=== PATIENT | female | born 1945 | race Caucasian/White ===

== ENCOUNTER 2024-08-28 09:52 | Outpatient (REF) | payer MEDICARE, OTHER, SELFPAY ==
--- NOTE | ~2024-08-28 | FL_ITS ---
EXAMINATION: XR FLUOROSCOPY UPPER GI WITH AIR CLINICAL INFORMATION: Odynophagia. Nausea. COMPARISON: None TECHNIQUE: Fluoroscopic air contrast upper GI examination was performed utilizing standard techniques with thin and thick barium and effervescent granules. Numerous spot images were obtained. FINDINGS: Lateral cine images of the oropharynx and hypopharynx demonstrate normal swallow mechanism with normal epiglottic inversion and soft palate elevation. There is trace laryngeal penetration with thick barium. No tracheal penetration, glottic or subglottic aspiration identified. No nasopharyngeal reflux present. Hypopharyngeal structures appear normal without evidence of mass or diverticulum. There is mild cricopharyngeal achalasia. Dual and single contrast images of the esophagus demonstrate a patulous esophagus with a normal contour. There is a granular appearance of the esophageal mucosa, suggestive of esophagitis. No strictures or ulcerations are present. Esophageal peristalsis is severely disorganized. A small type I hiatal hernia is present. There is an irregular appearance of the mucosa in the hiatal hernia with probable filling defects that extend into the fundus of the stomach. This results in intraluminal narrowing and delay in transit of the contrast into the stomach. No significant gastroesophageal reflux was seen during the course of the examination and on reflux views. Dual contrast and single contrast images of the stomach demonstrated a normal contour. There is thickening of the gastric mucosal folds throughout the stomach, suggestive of gastritis. Again noted is the irregular appearance of the mucosa in the hiatal hernia that extends into the fundus of the stomach. Contrast freely passed into the gastric antrum and duodenal bulb without delay. Single and air-contrast images of the duodenal bulb demonstrate no abnormality. The duodenal sweep has a normal appearance, course, and mucosal fold appearance. The imaged proximal jejunum has a normal fold pattern and caliber. FLUOROSCOPY TIME: 5 minutes 13 seconds Number of Spot Images: 10 Number of Cine: 13 DOSE AREA PRODUCT: 2436 uGy-m2 (microgray-meter squared) FL/FL upper GI w air IMPRESSION: 1. Trace laryngeal penetration with thick barium. 2. Mild cricopharyngeal achalasia. 3. Patulous esophagus with severely disorganized peristalsis consistent with esophageal dysmotility. 4. Granular appearance of the esophageal mucosa, suggestive of esophagitis. 5. Small type I hiatal hernia. 6. Irregular appearance of the mucosa in the hiatal hernia with probable filling defects that extend into the fundus the stomach. This results in intraluminal narrowing and delay in transit of contrast into the stomach. Findings suggest an INFILTRATING MASS, with major differential of esophageal/gastric varices. Favor mass given the appearance. Recommend correlation with EGD. 7. Thickening of the gastric mucosal folds, suggestive of gastritis. This procedure was performed by Travis Olivarez PA-C, and supervised by Dr. Zaldivar Electronically signed by: Brody Zaldivar MD 08/29/2024 04:28 PM [facility]
--- OUTSIDE RECORDS SUMMARY | 2024-08-28 09:59 | XMS_ITS | Patient Health Record ---
Author Organization Oliver Keita III, MD Address [address] [place] [address] [place] [address] Care Team Providers Care Biodiesel Engineering Manager Name Role Phone Oliver Keita Primary Care Provider Allergies Allergen (clinical drug ingredient) Drug/Non Drug Allergy documented on EMR Reaction Allergy Type Onset Date Status morphine Morphine Sulfate Unknown Drug Allergy Active Reason For Referral Reason 2 recent falls worse satish parkinson's disease Diagnosis 1 Parkinsons disease ( G20) Referral Organization Oliver Keita III, MD Referring Provider First Name Oliver Referring Provider Last Name Neela Referring Provider Speciality Internal M edicine Referred Organization [facility] Referred Provider Megan Anderson Referred Address [address], [id number], Referred Provider Specialty Nurse Chris rosa General Anita Walton CMA 09/13 09:16:32 AM EST > ref/demo/progress notes sent to Dipesh Anderson asking her to call and see patient , Anita Desouza CMA 10/10/2023 02:04:25 PM EST > Dipesh nurse called and will contact patient Referral Priority Routine Reason acute urinary incont ience Diagnosis 1 Urinary incontinence , unspecified type (R32) Referral Organization Oliver Keita III, MD Referring Provider First Name Oliver Referring Provider Last Name Neela Referring Provider Speciality Internal M edicine Referred Provider Linsey Boggs Referred Provider Specialty Urology General Notes StGAnita aguila [place] 06/13/2024 10:32:26 AM > ref/demo/progress notes faxed to Rosa Maria LAROSE Suzanne CMA 07/09/2024 03:23:00 PM > pt was seen today and has follow up appt on 08/27/2024 Referral Priority Routine Referral Appointment Date 07/09/2024 Medications Medication SIG (Take, Route, Frequency, Duration) Notes Start Date End Date Status Docusate Sodium 100 MG 1 capsule as need ed Orally Once a day prn constipation 10/07/2017 Active PreserVision AREDS - Orally Active ARIPiprazole 2 MG 1 tablet Orally Once a day Active Olmesartan Medoxomil 5 MG 1 tablet Orally Once a day Active Atorvastatin Calcium 20 MG TAKE 1 TABLET BY MOUTH EVERY DAY Active Carbidopa-Levodopa 10-100 MG 1 tablet Orally Three times a day Active Vitamin C Active Minoxidil for Women 2 % 1 mL Externally Twice a day 10/17/2023 Active Aspirin Adult Low Strength 81 MG 1 tablet Orally Once a day A ctive buPROPion HCl ER (XL) 300 MG 1 tablet in the morning Orally Once a day Active Carvedilol 6.25 MG 1 tablet with food O rally Twice a day Active Immunizations Vaccine Route Administration Date Status Comme nts Pneumococcal Unknown 03/09/2013 Administered Influenza Unknown 03/09/2013 Administered Zostavax Unknown 05/10/2014 Administered Influenza Unknown 06/23/2015 Administered PCV13 Unknown 10/13/2015 Administered Influenza, quad IM Intramuscular 06/18/2021 Administered COVID Pfizer Bivalent Unknown 06/16/2022 Administered COVID 19 Moderna Unknown 10/23/2020 Administered FLuzone HD PF Unknown 06/12/2023 Administered PCV13 Unknown 07/04/2020 Administered PCV13 Unknown 07/26/2018 Administered Influenza High Dose Quadrivalent Unknown 06/16/2022 Administered COVID 19 Moderna Unknown 11/20/2020 Administered COVID 19 Moderna Unknown 01/06/2022 Administered Social History Tobacco Use: Social History Observation Description Date Details (start date - stop date) Former Smoker NA - NA Sex Assigned At : Social History Observation Description Sex Assigned At Female Tobacco Use/Smoking Question Answer Notes Patient is a former smoker How long has it been since you last smoked? > 10 years Additional Findings: Tobacco Non-User Ex-cigaret te smoker Alcohol Screen Question Answer Notes Did you have a drink containing alcohol in the p ast year? No Points 0 Interpretation Negative Problems Problem Type SNOMED Code ICD Code Onset Dates Problem Status W/U Status Risk Notes Problem 4884914 Former smoker (Z87.891) Active confirmed She is highly motivated not to smoke and has a plan for maintenance of abstinence. Problem 18155594 Weight loss (R63.4) Active confirmed She has gained back 3 pounds. Her weight will be observed. Problem 895976447 Malignant neoplasm of sigmoid colon (C18.7) Active confirmed There is no sign of recurrent colon cancer at this time. Surveillance will continue with periodic colonoscopy. Problem Hypothyroidism (74416426) Hypothyroidism, unspecified (E03.9) Active confirmed She is clinically euthyroid. No change in her medication was necessary. Comprehensive blood work with thyroid function test was ordered today. Problem Hyperlipidemia (84174858) Hyperlipidemia, unspecified (E78.5) Active confirmed Her lipids have been stable. A fasting lipid profile is pending. Problem Osteoarthritis (889162373) Unspecified osteoarthritis, unspecified site (M19.90) Active confirmed She has mild arthritic pain which is intermittent in the hips, knees and shoulders. Her that she is using ibuprofen. Problem Other fracture of T11-T12 vertebra, initial encounter for closed fracture (S22.358A) Active confirmed Her pain is much improved she is ambulatory without difficulty and feels well. Current pain is in the hip where she had the injection, which is now improving. Problem 38263906 Essential hypertension (I10) Active confirmed Her blood pressure has been controlled at 117/61. I have recommended aggressive weight loss and sodium restriction. Problem Osteoporosis (30639827) Osteoporosis (M81.0) Active confirmed She will begin on Os-Rashawn 500 mg twice a day and 1000 units of vitamin D. If needed, alendronate will be added. Problem 05646074 Bipolar 1 disorder with moderate milady (F31.12) Active confirmed She remains under the care of her mental health provider. No change in her medications was made. Problem 31198293 Left bundle branch block (I44.7) Active confirmed She has no cardiovascular symptoms at this time. Problem 07654898 Cardiomyopathy (I42.9) Active confirmed Her loan specialist has made no change in her regimen. She is short of breath only with sustained exertion. Problem 72741102 Spinal stenosis of lumbar region without neurogenic claudication (M48.06) Active confirmed Her back pain is stable. No change in her regimen as needed. Her pain was improved with the injection yesterday Problem 604569950 Osteoarthritis (M19.90) Active confirmed She has mild arthritis in the knees, shoulders and hands. No change in her regimen as needed today. She is able to conduct all of the activities of daily living without impairment. 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 She has had no palpitations or syncope. Her cardiac disease has been in remission. She will be followed closely. She denies dyspnea. 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 She feels diffusely weak. She is compliant with her medication. She will follow-up with me on the neurologist regularly. Problem 49914725 Hyperlipidemia, unspecified hyperlipidemia type (E78.5) Active confirmed Her lipids are currently stable. Comprehensive blood work with a fasting lipid profile has been ordered. Problem 334482171 Urinary incontinence, unspecified type (R32) Active confirmed Problem 664809937 Transient ischemic attack (G45.9) Active confirmed A Holter monitor and an echocardiogram have been ordered. She will continue on aspirin. Vital Signs Heart Rate 73 /min 08/27/2024 Temperature 98.0 degrees Fahrenheit 08/27/2024 Blood pressure diastolic 56 mm Hg 08/27/2024 Height 64 in 08/27/2024 Blood pressure systolic 115 mm Hg 08/27/2024 Weight 139 lbs 08/27/2024 BMI 23.86 kg/m2 08/27/2024 Encounters Encounter Location Date Provider Diagnosis Oliver Keita III, MD [address] [place] [address] [place] [address] 08/27/2024 Oliver Keita Esophageal pain K22. 89 and Nausea and vomiting, unspecified vomiting type R11.2 Oliver Keita III, MD [address] [place] [address] [place] [address] 10/06/2023 Oliver Keita Malignant neoplasm o f sigmoid colon C18.7 ; Former smoker Z87.891 ; Overweight E66.3 ; Spinal stenosis of lumbar region without neurogenic claudication M48.06 ; Bipolar 1 disorder with moderate milady F31.12 ; Hyperlipidemia, unspecified E78.5 ; Cardiomyopathy I42.9 ; Athscl heart disease of wiyot coronary artery w/o ang pctrs I25.10 and Parkinsons disease G20 Oliver Keita III, MD [address] [place] [address] [place] [address] 10/14/2023 Oliver Keita Weight loss R63.4 ; Athscl heart disease of wiyot coronary artery w/o ang pctrs I25.10 ; Hyperlipidemia, unspecified E78.5 ; Unspecified osteoarthritis, unspecified site M19.90 ; Osteoporosis M81.0 ; Essential hypertension I10 ; Parkinsons disease G20 ; Spinal stenosis of lumbar region without neurogenic claudication M48.06 ; Former smoker Z87.891 ; Other fracture of T11-T12 vertebra, initial encounter for closed fracture S22.088A ; Malignant neoplasm of sigmoid colon C18.7 ; Bipolar 1 disorder with moderate milady F31.12 and Cardiomyopathy I42.9 Oliver Keita III, MD [address] [place] [address] [place] [address] 12/15/2023 Oliver Keita Weight loss R63.4 ; Malignant neoplasm of sigmoid colon C18.7 ; Bipolar 1 disorder with moderate milady F31.12 ; Cardiomyopathy I42.9 ; Spinal stenosis of lumbar region without neurogenic claudication M48.06 ; Hyperlipidemia, unspecified hyperlipidemia type E78.5 ; Other fracture of T11-T12 vertebra, initial encounter for closed fracture S22.088A ; Former smoker Z87.891 ; Osteoporosis M81.0 ; Parkinsons disease G20 and Essential hypertension I10 Oliver Keita III, MD [address] [place] [address] [place] [address] 03/30/2024 Oliver Keita Weight loss R63.4 ; Hyperlipidemia, unspecified E78.5 ; Malignant neoplasm of sigmoid colon C18.7 ; Bipolar 1 disorder with moderate milady F31.12 ; Cardiomyopathy I42.9 ; Spinal stenosis of lumbar region without neurogenic claudication M48.06 ; Former smoker Z87.891 ; Osteoarthritis M19.90 ; Other fracture of T11-T12 vertebra, initial encounter for closed fracture S22.088A ; Osteoporosis M81.0 ; Parkinsons disease G20 and Essential hypertension I10 Oliver Keita III, MD [address] [place] [address] [place] [address] 06/11/2024 Oliver Keita Hypothyroidism, unspecified E03.9 ; Parkinsons disease G20 ; Hyperlipidemia, unspecified E78.5 ; Bipolar 1 disorder with moderate milady F31.12 ; Malignant neoplasm of sigmoid colon C18.7 ; Cardiomyopathy I42.9 ; Spinal stenosis of lumbar region without neurogenic claudication M48.06 ; Former smoker Z87.891 ; Other fracture of T11-T12 vertebra, initial encounter for closed fracture S22.088A and Transient ischemic attack G45.9 Oliver Keita III, MD [address] [place] [address] [place] [address] 10/11/2023 Oliver Keita III, MD [address] [place] [address] [place] [address] 10/17/2023 Oliver Keita III, MD [address] [place] [address] [place] [address] 10/17/2023 Oliver Keita III, MD [address] [place] [address] [place] [address] 10/19/2023 Oliver Keita III, MD [address] [place] [address] [place] [address] 04/20/2024 Oliver Keita III, MD [address] [place] [address] [place] [address] 05/22/2024 Oliver Keita Hyperlipidemia, unspecified E78.5 ; Weight loss R63.4 and Hypothyroidism, unspecified E03.9 Oliver Keita III, MD [address] [place] [address] [address] [place] [address] 06/28/2024 Oliver Keita III, MD [address] [place] [address] [address] [place] [address] 08/23/2024 Oliver Keita Assessments Encounter Date Diagnosis (ICD Code) Assessment Notes Treat ment Notes Treatment Clinical Notes 08/27/2024 Esophageal pain (ICD-10 - K22.89) 10/06/2023 Former smoker (ICD-10 - Z87.891) She is highly motivated not to smoke and has a plan for maintenance of abstinence. 10/06/2023 Malignant neoplasm of sigmoid colon (ICD-10 - C18.7) There is no sign of recurrent colon cancer at this time. Surveillance will continue with periodic colonoscopy. 10/14/2023 Weight loss (ICD-10 - R63.4) She has lost about 20 pounds over the last year. This is likely due to her Parkinson's disease but another cause will be investigated. Blood work will be done. She is known to have a history of colon cancer. 10/14/2023 Athscl heart disease of wiyot coronary artery w/o ang pctrs (ICD-10 - I25.10) She denies any recent exertional chest pain or angina. She has had no palpitations or syncope. Her cardiac disease has been in remission. She will be followed closely. She denies dyspnea. 12/15/2023 Weight loss (ICD-10 - R63.4) She has gained back 3 pounds. Her weight will be observed. 12/15/2023 Malignant neoplasm of sigmoid colon (ICD-10 - C18.7) There is no sign of recurrent colon cancer at this time. Surveillance will continue with periodic colonoscopy. 03/30/2024 Weight loss (ICD-10 - R63.4) She has gained back 3 pounds. Her weight will be observed. 03/30/2024 Hyperlipidemia, unspecified (ICD-10 - E78.5) A fasting lipid profile has been ordered prior to her next visit. No change in her regimen was necessary today. 06/11/2024 Hypothyroidism, unspecified (ICD-10 - E03.9) She is clinically euthyroid. No change in her medication was necessary. Comprehensive blood work with thyroid function test was ordered today. 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 She feels diffusely weak. She is compliant with her medication. She will follow-up with me on the neurologist regularly. 08/27/2024 Nausea and vomiting, unspecified vomiting type (ICD-10 - R11.2) 10/06/2023 Overweight (ICD-10 - E66.3) She has gained 5 pounds since her last visit and her body mass index is 26. We have reviewed her diet and nutrition. We formulated a plan to lose weight at a rate of one half of a pound per week to a diet restricted in calories combined with regular physical activity. 10/14/2023 Hyperlipidemia, unspecified (ICD-10 - E78.5) Comprehensive blood work to evaluate the weight loss with a fasting lipid profile has been ordered. 12/15/2023 Bipolar 1 disorder with moderate milady (ICD-10 - F31.12) She has begun a new medication and was referred back to mental health for her depression and possible side effects. 03/30/2024 Malignant neoplasm of sigmoid colon (ICD-10 - C18.7) There is no sign of recurrent colon cancer at this time. Surveillance will continue with periodic colonoscopy. 06/11/2024 Hyperlipidemia, unspecified (ICD-10 - E78.5) Her lipids have been stable. A fasting lipid profile is pending. 05/22/2024 Hyperlipidemia, unspecified (ICD-10 - E78.5) 10/06/2023 Spinal stenosis of lumbar region without neurogenic claudication (ICD-10 - M48.06) Her back pain is stable. No change in her regimen as needed. Her pain was improved with the injection yesterday 10/14/2023 Unspecified osteoarthritis, unspecified site (ICD-10 - M19.90) She has mild arthritic pain which is intermittent in the hips, knees and shoulders. Her that she is using ibuprofen. 12/15/2023 Cardiomyopathy (ICD-10 - I42.9) Her loan specialist has made no change in her regimen. She is short of breath only with sustained exertion. 03/30/2024 Bipolar 1 disorder with moderate milady (ICD-10 - F31.12) She has begun a new medication and was referred back to mental health for her depression and possible side effects. 06/11/2024 Bipolar 1 disorder with moderate milady (ICD-10 - F31.12) She remains under the care of her mental health provider. No change in her medications was made. 05/22/2024 Weight loss (ICD-10 - R63.4) 10/06/2023 Bipolar 1 disorder with moderate milady (ICD-10 - F31.12) She has begun a new medication and was referred back to mental health for her depression and possible side effects. 10/14/2023 Osteoporosis (ICD-10 - M81.0) She will begin on Os-Rashawn 500 mg twice a day and 1000 units of vitamin D. If needed, alendronate will be added. 12/15/2023 Spinal stenosis of lumbar region without neurogenic claudication (ICD-10 - M48.06) Her back pain is stable. No change in her regimen as needed. Her pain was improved with the injection yesterday 03/30/2024 Cardiomyopathy (ICD-10 - I42.9) Her loan specialist has made no change in her regimen. She is short of breath only with sustained exertion. 06/11/2024 Malignant neoplasm of sigmoid colon (ICD-10 - C18.7) There is no sign of recurrent colon cancer at this time. Surveillance will continue with periodic colonoscopy. 05/22/2024 Hypothyroidism, unspecified (ICD-10 - E03.9) 10/06/2023 Hyperlipidemia, unspecified (ICD-10 - E78.5) 10/14/2023 Essential hypertension (ICD-10 - I10) Her blood pressure has been controlled. I have recommended aggressive weight loss and sodium restriction. 12/15/2023 Hyperlipidemia, unspecified hyperlipidemia type (ICD-10 - E78.5) Her lipids are currently stable. Comprehensive blood work with a fasting lipid profile has been ordered. 03/30/2024 Spinal stenosis of lumbar region without neurogenic claudication (ICD-10 - M48.06) Her back pain is stable. No change in her regimen as needed. Her pain was improved with the injection yesterday 06/11/2024 Cardiomyopathy (ICD-10 - I42.9) Her loan specialist has made no change in her regimen. She is short of breath only with sustained exertion. 10/06/2023 Cardiomyopathy (ICD-10 - I42.9) Her loan specialist has made no change in her regimen. She is short of breath only with sustained exertion. 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 She feels diffusely weak. She is compliant with her medication. She will follow-up with me on the neurologist regularly. 12/15/2023 Other fracture of T11-T12 vertebra, initial encounter for closed fracture (ICD-10 - S22.088A) Her pain is much improved she is ambulatory without difficulty and feels well. Current pain is in the hip where she had the injection, which is now improving. 03/30/2024 Former smoker (ICD-10 - Z87.891) She is highly motivated not to smoke and has a plan for maintenance of abstinence. 06/11/2024 Spinal stenosis of lumbar region without neurogenic claudication (ICD-10 - M48.06) Her back pain is stable. No change in her regimen as needed. Her pain was improved with the injection yesterday 10/06/2023 Athscl heart disease of wiyot coronary artery w/o ang pctrs (ICD-10 - I25.10) No additional chest pain. Compliannt with her medication. Her cardiac examination today was unremarkable. 10/14/2023 Spinal stenosis of lumbar region without neurogenic claudication (ICD-10 - M48.06) Her back pain is stable. No change in her regimen as needed. Her pain was improved with the injection yesterday 12/15/2023 Former smoker (ICD-10 - Z87.891) She is highly motivated not to smoke and has a plan for maintenance of abstinence. 03/30/2024 Osteoarthritis (ICD-10 - M19.90) She has mild arthritis in the knees, shoulders and hands. No change in her regimen as needed today. She is able to conduct all of the activities of daily living without impairment. 06/11/2024 Former smoker (ICD-10 - Z87.891) She is highly motivated not to smoke and has a plan for maintenance of abstinence. 10/06/2023 Parkinsons disease (ICD-10 - G20) She has been placed on carbidopa/levodopa by the neurologist and says her tremor is improving. Her main complaint today is balancing. 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 10/14/2023 Former smoker (ICD-10 - Z87.891) She is highly motivated not to smoke and has a plan for maintenance of abstinence. 12/15/2023 Osteoporosis (ICD-10 - M81.0) She will begin on Os-Rashawn 500 mg twice a day and 1000 units of vitamin D. If needed, alendronate will be added. 03/30/2024 Other fracture of T11-T12 vertebra, initial encounter for closed fracture (ICD-10 - S22.088A) Her pain is much improved she is ambulatory without difficulty and feels well. Current pain is in the hip where she had the injection, which is now improving. 06/11/2024 Other fracture of T11-T12 vertebra, initial encounter for closed fracture (ICD-10 - S22.088A) Her pain is much improved she is ambulatory without difficulty and feels well. Current pain is in the hip where she had the injection, which is now improving. 10/14/2023 Other fracture of T11-T12 vertebra, initial encounter for closed fracture (ICD-10 - S22.088A) Her pain is much improved she is ambulatory without difficulty and feels well. Current pain is in the hip where she had the injection, which is now improving. 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 She feels diffusely weak. She is compliant with her medication. She will follow-up with me on the neurologist regularly. 03/30/2024 Osteoporosis (ICD-10 - M81.0) She will begin on Os-Rashawn 500 mg twice a day and 1000 units of vitamin D. If needed, alendronate will be added. 06/11/2024 Transient ischemic attack (ICD-10 - G45.9) A Holter monitor and an echocardiogram have been ordered. She will continue on aspirin. 10/14/2023 Malignant neoplasm of sigmoid colon (ICD-10 - C18.7) There is no sign of recurrent colon cancer at this time. Surveillance will continue with periodic colonoscopy. 12/15/2023 Essential hypertension (ICD-10 - I10) Her blood pressure has been controlled at 111/56. I have recommended aggressive weight loss and sodium restriction. 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 She feels diffusely weak. She is compliant with her medication. She will follow-up with me on the neurologist regularly. 10/14/2023 Bipolar 1 disorder with moderate milady (ICD-10 - F31.12) She has begun a new medication and was referred back to mental health for her depression and possible side effects. 03/30/2024 Essential hypertension (ICD-10 - I10) Her blood pressure has been controlled at 117/61. I have recommended aggressive weight loss and sodium restriction. 10/14/2023 Cardiomyopathy (ICD-10 - I42.9) Her loan specialist has made no change in her regimen. She is short of breath only with sustained exertion. Plan Of Treatment Pending Test Test Name Order Date PROFILE, FASTING (COMPREHENSIVE METABOLI C) 06/30/2020 PROFILE, FASTING (COMPREHENSIVE METABOLI C) 12/09/2022 PROFILE, FASTING (COMPREHENSIVE METABOLI C) 09/18/2019 PROFILE, FASTING (COMPREHENSIVE METABOLI C) 03/30/2024 PROFILE, FASTING (COMPREHENSIVE METABOLI C) 04/09/2021 PROFILE, FASTING (COMPREHENSIVE METABOLI C) 01/31/2018 PROFILE, FASTING (COMPREHENSIVE METABOLI C) 11/16/2021 PROFILE, FASTING (COMPREHENSIVE METABOLI C) 11/27/2020 PROFILE, FASTING (COMPREHENSIVE METABOLI C) 06/24/2022 PROFILE, FASTING (COMPREHENSIVE METABOLI C) 05/18/2019 PROFILE, FASTING (COMPREHENSIVE METABOLI C) 10/07/2017 PROFILE, FASTING (COMPREHENSIVE METABOLI C) 04/13/2023 PROFILE, FASTING (COMPREHENSIVE METABOLI C) 01/17/2020 PROFILE, FASTING (COMPREHENSIVE METABOLI C) 06/11/2024 PROFILE, FASTING (COMPREHENSIVE METABOLI C) 06/18/2021 PROFILE, FASTING (COMPREHENSIVE METABOLI C) 01/15/2019 PROFILE, FASTING (COMPREHENSIVE METABOLI C) 08/11/2018 PROFILE, FASTING (COMPREHENSIVE METABOLI C) 08/25/2020 PROFILE, FASTING (COMPREHENSIVE METABOLI C) 05/22/2024 PROFILE, FASTING (COMPREHENSIVE METABOLI C) 03/10/2022 PROFILE, RANDOM (COMPREHENSIVE METABOLIC ) 04/28/2020 PROFILE, RANDOM (COMPREHENSIVE METABOLIC ) 06/24/2020 CALCIUM 06/24/2020 LIPID PANEL 01/15/2019 LIPID PANEL 08/11/2018 LIPID PANEL 08/25/2020 LIPID PANEL 03/10/2022 LIPID PANEL 06/30/2020 LIPID PANEL 06/24/2020 LIPID PANEL 12/09/2022 LIPID PANEL 09/18/2019 LIPID PANEL 04/28/2020 LIPID PANEL 04/09/2021 LIPID PANEL 01/31/2018 LIPID PANEL 11/27/2020 LIPID PANEL 06/24/2022 LIPID PANEL 05/18/2019 LIPID PANEL 10/07/2017 LIPID PANEL 04/13/2023 LIPID PANEL 01/17/2020 CHOLESTEROL 11/16/2021 FREE T4 (FT4) 06/30/2020 TSH (THYROID STIMULATING HORMONE) 2023 TSH (THYROID STIMULATING HORMONE) 2017 TSH (THYROID STIMULATING HORMONE) 2019 TSH (THYROID STIMULATING HORMONE) 2019 TSH (THYROID STIMULATING HORMONE) 2023 CEA 10/07/2017 CBC w DIFF 06/18/2021 CBC w DIFF 04/13/2023 CBC w DIFF 01/17/2020 CBC w DIFF 06/11/2024 CBC w DIFF 10/07/2017 CBC w DIFF 01/15/2019 CBC w DIFF 08/25/2020 CBC w DIFF 03/10/2022 CBC w DIFF 12/09/2022 CBC w DIFF 08/11/2018 CBC w DIFF 09/18/2019 CBC w DIFF 06/24/2020 CBC w DIFF 04/28/2020 CBC w DIFF 04/09/2021 CBC w DIFF 01/31/2018 CBC w DIFF 06/30/2020 CBC w DIFF 11/16/2021 CBC w DIFF 11/27/2020 CBC w DIFF 06/24/2022 CBC w DIFF 05/18/2019 XR GI SERIES 08/27/2024 BONE DENSITY DEXA 04/22/2023 MAMMOGRAM DIGITAL BILATERAL SCREEN 11/27 MAMMOGRAM DIGITAL BILATERAL SCREEN 04/06 Echocardiogram 01/27/2017 VITAMIN D 25-OH TOTAL 01/15/2019 VITAMIN D 25-OH TOTAL 08/11/2018 VITAMIN D 25-OH TOTAL 06/24/2020 VITAMIN D 25-OH TOTAL 04/28/2020 CBC WITH AUTO DIFF 05/22/2024 CBC WITH AUTO DIFF 03/30/2024 Lipid Panel 06/18/2021 Lipid Panel 06/11/2024 Lipid Panel 05/22/2024 Lipid Panel 03/30/2024 Free T4 (Free Thyroxine) 06/11/2024 Free T4 (Free Thyroxine) 05/22/2024 Next Appt Details Provider Name:Oliver Keita, 09/19/2024 10:30:00 AM, [address] [place] [address] [address], [place], [address], Provider Name:Oliver Keita, 12/17/2024 10:00:00 AM, [address] [place] [address] [address], [place], [address], Insurance Providers Payer Name Payer Address Payer Phone Subscriber Number Group Number Insured Name Patient Relationship to Insured Coverage Start Date Coverage End Date MEDICARE NGS [address] [place] [phone] [id number] [place] Julienne pizano Self - patient is the insured [employer]) [address] [place] [address] [phone] [id number] [employer] Julienne pizano Self - patient is the insured Medical (General) History Medical History History ICD Code nonischemic cardiomyopathy EF 30-35% osteoarthritis hyperlipidemia 2001 colon cancer State II [id number] bipolar disorder unrinary incontinence shingles 2009 LBBB mammograms due in November chronic back pain/spinal stenosis macular degeneration Xavi Zhang [place] Essential hypertension TIA [facility] July 2023 Parkinsons diswase July 2023 dry macular degeneration legal blindness Surgical History Surgery Date(Month/Year) left knee replacement lumbar decompression 2014 cardiac catheterization, normal 06/2014 right knee replacement colonoscopy 11/2008 colonoscopy 12/2010 right ilieocolectomy 2001 Hospitalization History Reason Date(Month/Year) HIMANSHU 07/2022 TIA 07/2022
--- OUTSIDE RECORDS SUMMARY | 2024-08-28 09:59 | XMS_ITS ---
Author Organization Oliver Keita III, MD Address [address] [address] Care Team Providers Care Construction Quality Control Manager Name Role Phone Oliver Keita Primary Care Provider Allergies Allergen (clinical drug ingredient) Drug/Non Drug Allergy documented on EMR Reaction Allergy Type Onset Date Status morphine Morphine Sulfate Unknown Drug Allergy Active REASON FOR VISIT It hurts to swallow and chest hurts x 1 week, Vomiting x 1 week Medications Medication SIG (Take, Route, Frequency, Duration) Notes Start Date End Date Status Docusate Sodium 100 MG 1 capsule as need ed Orally Once a day prn constipation 10/07/2017 Active PreserVision AREDS - Orally Active ARIPiprazole 2 MG 1 tablet Orally Once a day Active Olmesartan Medoxomil 5 MG 1 tablet Orally Once a day Active Carbidopa-Levodopa 10-100 MG 1 tablet Orally [...] food O rally Twice a day Active Atorvastatin Calcium 20 MG TAKE 1 TABLET BY MOUTH EVERY DAY Active Social History Tobacco Use: Social History Observation Description Date Details (start date - stop date) Former Smoker NA - NA Sex Assigned At : Social History Observation Description Sex Assigned At Female Tobacco Use/Smoking Question Answer Notes Patient is a former smoker How long has it been since you last smoked? > 10 years Additional Findings: Tobacco Non-User Ex-cigaret te smoker Vital Signs Temperature 98.0 degrees Fahrenheit 08/27/20 24 Blood pressure systolic 115 mm Hg 08/27/20 24 Blood pressure diastolic 56 mm Hg 024 Heart Rate 73 /min 08/27/2024 Height 64 in 08/27/2024 Weight 139 lbs 08/27/2024 BMI 23.86 kg/m2 08/27/2024 Encounters Encounter Location Date Provider Diagnosis Oliver Keita III, MD [address] [place] [address] [place] [facility] [address] 08/27/2024 Oliver Keita Esophageal pain K22. 89 and Nausea and vomiting, unspecified vomiting type R11.2 Assessments Encounter Date Diagnosis (ICD Code) Assessment Notes Treat ment Notes Treatment Clinical Notes 08/27/2024 Esophageal pain (ICD-10 - K22.89) 08/27/2024 Nausea and vomiting, unspecified vomiting type (ICD-10 - R11.2) Plan Of Treatment Medication Medication Name Sig Start Date Stop Date Notes Docusate Sodium 100 MG 1 capsule as need ed Orally Once a day prn constipation 10/07/2017 PreserVision AREDS - Orally ARIPiprazole 2 MG 1 tablet Orally Once a day Olmesartan Medoxomil 5 MG 1 tablet Orally Once a day Carbidopa-Levodopa 10-100 MG 1 tablet Or ally Three times a day Vitamin C Minoxidil for Women 2 % 1 mL Externally Twice a day 2023 Aspirin Adult Low Strength 8 1 MG 1 tablet Orally Once a day buPROPion HCl ER (XL) 300 MG 1 tablet in the morning Orally Once a day Carvedilol 6.25 MG 1 tablet with food O rally Twice a day Atorvastatin Calcium 20 MG TAKE 1 TABLET BY MOUTH EVERY DAY Pending Test Test Name Order Date XR GI SERIES 08/27/2024 Next Appt Details Follow Up: after labs/UGI, Alexandrea amaya: OV review labs and UGI Provider Name:Oliver Hilliardrne, 09/19/2024 10:30:00 AM, [address] [facility] [address], [place], [address], Provider Name:Oliver Hilliardrne, 12/17/2024 10:00:00 AM, [address] [facility] [address], [place], [address], Progress Notes * MARIA DEL ROSARIORENE JulienneDOB:[birth year] (79 yo F)Acc No.[id number]:08/27/2024 Progress Notes Patient:?Julienne BURGOS Provider:?Oliver Keita MD :1945???Age:79 Y???Sex:Female D ate:08/27/2024 Address:[facility] [address], [place], [phone] Subjective: * Chief Complaints: * ???1. It hurts to swallow an d chest hurts x 1 week. 2. Vomiting x 1 week. * HPI: ???COVID-19 Screening:?Questions?Have you had any new onset fever, chills, cough, congestion, sore throat, shortness of breath, muscle aches??No * ROS:?General/Constitutional:?pain?only normal aches and pains.?Chills?denies.?Fatigue?admits.?Fever?denies.?ENT:?Decreased hearing?denies.?Respiratory:?Cough?denies.?Cardiovascular:?Chest pain with exertion?denies.?Dyspnea on exertion?denies.?Shortness of breath?denies.?Gastrointestinal:?Constipation?denies.?Decreased appetite?denies.?Diarrhea?denies.?Heartburn?denies.?Nausea?denies.?Rectal bleeding?denies.?Vomiting?denies.?Hematology:?bruising?denies.?petechiae?denies.?Swollen glands?none have been noted.?Genitourinary:?Frequent urination?denies.?Musculoskeletal:?Muscle aches?denies.?Painful joints?denies.?Sciatica?denies.?Weakness?denies.?Skin:?Itching?denies.?Rash?denies.?Skin lesion(s)?denies.?Neurologic:?Difficulty speaking?denies.?Dizziness?denies.?Headache?denies.?Low back pain?denies.?Psychiatric:?Depressed mood?denies.? * Medical History:?nonischemic cardiomyopathy EF 30-35%, Osteoarthritis, Hyperlipidemia, 2001 colon cancer State II [id number], Bipolar disorder, Unrinary incontinence, Shingles 2009, LBBB, mammograms due in November, Chronic back pain/spinal stenosis, macular degeneration [place]avi [place], Essential hypertension, TIA [facility] July 2023, Parkinsons diswase July 2023, Dry macular degeneration, Legal blindness. * Surgical History:?right ilie ocolectomy 2001, colonoscopy 12/2010, colonoscopy 11/2008, right knee replacement , cardiac catheterization, normal 06/2014, lumbar decompression 2014, left knee replacement . * Hospitalization/Major Diagno stic Procedure:?TIA 07/2022, HIMANSHU 07/2022. * Family History:?Father: dece ased 76 yrs, emphysema.?Mother: 97 yrs, old age, no cancer history.?2 brother(s) , 1 sister(s) - healthy. 1 son(s) , 1 daughter(s) - healthy. .? She has no family history of mental illness or colon cancer. * Social History:?Tobacco Use:?Tobacco Use/Smoking?Patient is a?former smoker ?How long has it been since you last smoked??> 10 years ?Additional Findings: Tobacco Non-User?Ex-cigarette smoker ???She has been to [place] for many years and is not working. She was born in [facility], [facility]. * Medications:?Taking Minoxidi l for Women 2 % Solution 1 mL Externally Twice a day , Taking Vitamin C , Taking buPROPion HCl ER (XL) 300 MG Tablet Extended Release 24 Hour 1 tablet in the morning Orally Once a day , Taking Aspirin Adult Low Strength 81 MG Tablet Chewable 1 tablet Orally Once a day , Taking Carvedilol 6.25 MG Tablet 1 tablet with food Orally Twice a day , Taking PreserVision AREDS - Tablet Orally , Taking Docusate Sodium 100 MG Capsule 1 capsule as needed Orally Once a day prn constipation , Taking Olmesartan Medoxomil 5 MG Tablet 1 tablet Orally Once a day , Taking ARIPiprazole 2 MG Tablet 1 tablet Orally Once a day , Taking Carbidopa-Levodopa 10-100 MG Tablet 1 tablet Orally Three times a day , Taking Atorvastatin Calcium 20 MG Tablet TAKE 1 TABLET BY MOUTH EVERY DAY , Medication List reviewed and reconciled with the patient * Allergies:?Morphine Sulfate. Objective: * Vitals:?Ht: 64, Wt:139, BMI: 23.86, BP:115/56, HR:73, Temp:98.0, Wt-k.05. * Examination: ???General Examination: ?GENERAL APPEARANCE:?pleasant, well nourished, well developed, in no acute distress, calm and relaxed.?HEAD:?atraumatic, normocephalic.?EYES:?eomi, perrla, anicteric, conjugate.?EARS:?normal.?NOSE:?septum intact.?ORAL CAVITY:?normal, unremarkable.?NECK/THYROID:?no jugular venous distention, no carotid bruit, thyroid normal.?LYMPH NODES:?no enlarged lymph nodes,spleen normal.?SKIN:?no suspicious lesions, anicteric.?HEART:?no clicks, gallops, murmurs, or rubs, regular rhythm, S1, S2 normal, no s3, or vascular bruits.?LUNGS:?clear to auscultation .?BREASTS:??no masses palpable bilaterally.?ABDOMEN:?bowel sounds normal, no ascites, no organomegaly, no mass.?RECTAL EXAM:?not examined.?MUSCULOSKELETAL:?extremities unremarkable, no clubbing, cyanosis or edema.?PERIPHERAL PULSES:?normal.?NEUROLOGIC:?alert and oriented, cranial nerves 2-12 grossly intact, deep tendon reflexes 2+ symmetrical, motor strength normal upper and lower extremities, sensory exam intact.?PSYCH:?alert, oriented.? Assessment: * Assessment: 1.?Esophageal pain - K22.89? ??2.?Nausea and vomiting, unspecified vomiting type - R11.2??? Plan: * Treatment: 2.?Nausea and vomiting, unsp ecified vomiting type?Imaging: XR GI SERIES 3.?Others? Continue Atorvastatin Calcium Tablet, 20 MG, TAKE 1 TABLET BY MOUTH EVERY DAY;?Continue Minoxidil for Women Solution, 2 %, 1 mL, Externally, Twice a day;?Continue Vitamin C;?Continue buPROPion HCl ER (XL) Tablet Extended Release 24 Hour, 300 MG, 1 tablet in the morning, Orally, Once a day;?Continue Aspirin Adult Low Strength Tablet Chewable, 81 MG, 1 tablet, Orally, Once a day;?Continue Carvedilol Tablet, 6.25 MG, 1 tablet with food, Orally, Twice a day;?Continue PreserVision AREDS Tablet, -, Orally;?Continue Docusate Sodium Capsule, 100 MG, 1 capsule as needed, Orally, Once a day prn constipation;?Continue Olmesartan Medoxomil Tablet, 5 MG, 1 tablet, Orally, Once a day;?Continue ARIPiprazole Tablet, 2 MG, 1 tablet, Orally, Once a day;?Continue Carbidopa-Levodopa Tablet, 10-100 MG, 1 tablet, Orally, Three times a day.?? * Follow Up:?after labs/UGI (Alexandrea amaya: OV review labs and UGI) * Images: * The named appointment provid er may or may not be the originator of this progress note, and it is not deemed complete until electronically signed by the appointment provider. Sign off status: Pending * Provider:?Oliver Ketia MD Date:?08/12 Generated for Lesliei becky/Cecilia/Mary on:?08/28/2024 09:58 AM EST History and Physical Notes * HPI (History of Present Illness) Category Sub-Category Detail Notes COVID-19 Screening Questions Have you had any new onset fever, chills, cough, congestion, sore throat, shortness of breath, muscle aches?: No Examination Category Sub-Category Detail Notes General Examination GENERAL APPEARANCE: pleasant , well nourished, well developed, in no acute distress, calm and relaxed HEAD: atraumatic, normocep halic EYES: eomi, perrla, anicte eda, conjugate EARS: normal NOSE: septum intact NECK/THYROID: no jugular venous di stention, no carotid bruit, thyroid normal HEART: no clicks, gallops, murmurs, or rubs, regular rhythm, S1, S2 normal, no s3, or vascular bruits LUNGS: clear to auscultatio n ABDOMEN: bowel sounds normal, no ascites, no organomegaly, no mass NEUROLOGIC: alert and oriented, cranial nerves 2-12 grossly intact, deep tendon reflexes 2+ symmetrical, motor strength normal upper and lower extremities, sensory exam intact SKIN: no suspicious lesion s, anicteric PERIPHERAL PULSES: normal BREASTS: no masses palpable b ilaterally MUSCULOSKELETAL: extremities unremark able, no clubbing, cyanosis or edema LYMPH NODES: no enlarged lymph no yunior,spleen normal RECTAL EXAM: not examined PSYCH: alert, oriented ORAL CAVITY: normal, unremarkable
--- OUTSIDE RECORDS SUMMARY | 2024-08-28 09:59 | XMS_ITS ---
[facility] Name [facility] Organization Unknown History of Medication Use Medication Directions Dispensed Refills Start Date End Date Stat traZODone (DESYREL) 50 MG tablet Take 0.5-1 tablets by mouth nightly. 06/04/2022 active Multiple Vitamins-Minerals (PreserVision AREDS) Tab 06/04/2022 active carbidopa-levodopa (SINEMET) 25-100 MG per tablet Take 1 tablet by mouth. 01/19/2023 active carvedilol (COREG) 6.25 MG tablet Take 6.25 mg by mouth 2 (two) times a day. 06/04/2022 active bisacodyl 5 MG EC tablet 06/04/2022 active buPROPion (WELLBUTRIN XL) 300 MG 24 hr tablet 1 tablet in the morning 06/04/2022 active doxycycline (VIBRA-TABS) 100 MG tablet doxycycline hyclate 100 mg tablet TAKE 1 TABLET BY MOUTH TWICE A DAY DIRECTED FOR 7 DAYS 08/20/2022 active brimonidine (ALPHAGAN) 0.2 % ophthalmic solution 06/04/2022 activ e atorvastatin (LIPITOR) 20 MG tablet 1 tablet 06/04/2022 active doxycycline (VIBRAMYCIN) 100 MG capsule doxycycline hyclate 100 mg capsule Take 2 capsules by oral route. 06/04/2022 active polyethylene glycol (miraLAx) 17 GM/SCOOP powder Take 17 g by mouth. 12/01/2022 active ARIPiprazole (ABILIFY) 2 MG tablet 06/04/2022 act sara lamoTRIgine (LaMICtal) 50 MG Tablet Dispersible 1 tablet 06/04/2022 active [facility] Stool Softener 100 MG capsule Take 100 mg by mouth daily as needed. 06/04/2022 active HYDROcodone-acetamino phen (NORCO) 5-325 mg per tablet Take 1 tablet by mouth 4 times daily (every 6 hours) as needed. 08/20/2022 active Multiple Vitamins-Minerals (PreserVision AREDS) Tab 04/23/2023 active atorvastatin (LIPITOR) 20 MG tablet 1 tablet 06/04/2022 active melatonin 10 MG Tab tablet 06/04/2022 active olmesartan (BENICAR) 5 MG tablet 1 tablet 06/04/2022 active LORazepam (ATIVAN) 0.5 MG tablet TAKE 1 TABLET BY MOUTH EVERY DAY NEEDED FOR ANXIETY 08/20/2022 active lisinopril (PRINIVIL,ZeSTRIL) 2.5 MG tablet Take 1 tablet by mouth daily. 06/04/2022 active DULoxetine (CYMBALTA) 60 MG capsule 06/04/2022 active Triamcinolone Acetonide 0.025 % Lotion APPLY TO SCALP TWICE A DAY NEEDED 06/04/2022 active carbidopa-levodopa (SINEMET) 10-100 MG per tablet 1 tablet 12/01/2022 active hydrALAZINE (APRESOLINE) 50 MG tablet 1 tablet 06/04/2022 active OMEprazole (PriLOSEC) 20 MG capsule omeprazole 20 mg capsule,delayed release 06/04/2022 active carbidopa-levodopa (SINEMET) 25-100 MG per tablet 08/20/2022 active amoxicillin (AMOXIL) 500 MG capsule TAKE 4 CAPSULES BY MOUTH 1 HOUR PRIOR TO APPT 08/20/2022 active meclizine (ANTIVERT) 25 MG tablet 06/04/2022 active hydrALAZINE (APRESOLINE) 25 MG tablet 06/04/2022 active losartan (COZAAR) 25 MG tablet losartan 25 mg tablet 06/04/2022 active iicukeoz-gdpxmwvby-is xamethasone (MAXITROL) 0.1 % Ointment neomycin 3.5 mg/g-polymyxin B 10,000 unit/g-dexameth 0.1 % eye oint APPLY DIRECTED TO BOTH EYES DAILY AT BEDTIME 08/20/2022 active olmesartan (BENICAR) 5 MG tablet Take 10 mg by mouth daily. 06/04/2022 aborted DULoxetine (CYMBALTA) 30 MG capsule 06/04/2022 active lithium carbonate (LITHOBID) 300 MG 12 hr CR tablet 06/04/2022 active buPROPion (WELLBUTRIN XL) 150 MG 24 hr tablet TAKE 1 TABLET BY MOUTH EVERY MORNING TAKE WITH THE 300 MG TABLET. 08/20/2022 active [facility] Melatonin 10 MG capsule TAKE 1 CAPSULE BY MOUTH EVERYDAY AT BEDTIME 06/04/2022 active Problems Problem Status Onset Date Problem Type Date of Resoluti on Source Opioid use, unspecified, uncomplicated active 2023-04-21 [facility] Other chronic pain active 2021-07-02 [facility] Chronic low back pain active 2020-06-05 [facility] Spinal stenosis of lumbar region active 2021-02-16 Problem[facility] Thoracic facet joint syndrome active 2020-06-05 [facility] Lumbar radiculopathy active 2021-02-16 [facility] Sacroiliitis active 2020-05-29 ProblemAct [facility] Lumbar facet joint syndrome active 2020-06-05 ProblemAct [facility]
--- OUTSIDE RECORDS SUMMARY | 2024-08-28 09:59 | XMS_ITS ---
Author Organization Oliver Keita III, MD Address [address] [place] [address] Care Team Providers Care Brush Maker Machine Name Role Phone Oliver Keita Primary Care Provider REASON FOR VISIT Message Social History Sex Assigned At : Social History Observation Description Sex Assigned At Female Encounters Encounter Location Date Provider Diagnosis Oliver Keita III, MD [address] [place] [address] [place] [address] 08/23/2024 Oliver Keita Plan Of Treatment Next Appt Details Provider Name:Oliver Keita, 09/19/2024 10:30:00 AM, [address] [place] [address] [place], [address], Provider Name:Oliver Keita, 12/17/2024 10:00:00 AM, [address] [place] [address] [address], [place], [address], Progress Notes * Julienne BURGOSDOB:[birth year] (79 yo F)Acc No.[id number]:08/23/2024 Patient:?Julienne BURGOS :1945???Age:79 Y???Sex:Female Address:[facility] [address], [place] [address] * true * Date:? Generated for Kerri pena/Cecilia/eTransmitting on:?08/28/2024 09:58 AM EST
--- OUTSIDE RECORDS SUMMARY | 2024-08-28 09:59 | XMS_ITS ---
Author Organization Oliver Keita III, MD Address [address] [place] [address] Care Team Providers Care Garden Worker Name Role Phone Oliver Keita Primary Care Provider REASON FOR VISIT Requesting Appointment / Follow Up Social History Sex Assigned At : Social History Observation Description Sex Assigned At Female Encounters Encounter Location Date Provider Diagnosis Oliver Keita III, MD [address] [place] [address] [place] [address] 06/28/2024 Oliver Keita Plan Of Treatment Next Appt Details Provider Name:Oliver Keita, 09/19/2024 10:30:00 AM, [address] [place] [address] [place], [address], Provider Name:Oliver Keita, 12/17/2024 10:00:00 AM, [address] [place] [address] [address], [place], [address], Progress Notes * Julienne BURGOSB:[birth year] (79 yo F)Acc No.[id number]:06/28/2024 Patient:?Julienne BURGOS :1945???Age:79 Y???Sex:Female Address:[facility] [address], [place] [address] * true * Date:? Generated for Lesliei becky/Cecilia/eTransmitting on:?08/28/2024 09:58 AM EST
--- OUTSIDE RECORDS SUMMARY | 2024-08-28 09:59 | XMS_ITS | Continuity of Care Document ---
Author Organization [facility] Address [address] [facility], [address] d [address], [address] [place] [phone] Support Name Relationship Address Phone PODGURSRENE, MEGHANA Personal Relationship Unknown Un available PODGURSKI, RUSTAM spouse Unknown Unavailable PODGURSKI, MEGHANA Personal Relationship Unknown Un available PODGURSKI, MEGHANA Personal Relationship Unknown Un available PODGURSKI, MEGHANA Personal Relationship Unknown Un available PODGURSKI, RUSTAM Personal Relationship Unknown Un available PODGURSKI, RUSTAM Personal Relationship Unknown Un available PODGURSKI, RUSTAM Personal Relationship Unknown Un available PODGURSKI, RUSTAM Personal Relationship Unknown Un available PODGURSKI, MEGHANA Personal Relationship Unknown Un available PODGURSKI, MEGHANA Personal Relationship Unknown Un available PODGURSKI, RUSTAM Personal Relationship Unknown Un available PODGURSKI, MEGHANA Personal Relationship Unknown Un available PODGURSKI, MEGHANA Personal Relationship Unknown Un available PODGURSKI, RUSTAM Personal Relationship Unknown Un available PODGURSKI, RUSTAM Personal Relationship Unknown Un available PODGURSKI, RUSTAM Personal Relationship Unknown Un available PODGURSKI, MEGHANA Personal Relationship Unknown Un available PODGURSKI, RUSTAM Personal Relationship Unknown Un available PODGURSK, RUSTAM Personal Relationship Unknown Aundrea vailable PODGURSKI, RUSTAM Personal Relationship Unknown Un available PODGURSKI, MEGHANA Personal Relationship Unknown Un available Care Team Providers 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 Lumber 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 Supervisor Name Role Phone Neela RIBERA, Oliver Cabrera Primary Care Physician Encounter [facility] Date(s): 08/13/24 - 08/20/24 [facility] [address] [facility] [address] [place] [address]- Attending Physician: Oliver Stevens MD Encounter Type: Office Visit Allergies, Adverse Reactions, Alerts Substance Criticality Severity Reaction Reaction Severity Status morphine Active Immunizations Given and Recorded Vaccine Date Status Refusal Reason tetanus/diphtheria/pertussis, acel(Tdap) 03/09/24 Given Medications acetaminophen 500 mg oral tablet 1 tablet = 500 mg, By Mouth, Every 4 hours, PRN as needed for pain, # 50 tablet, 0 Refills, Maintenance, 10/12/18 12:41:46 PM EST, Tablet Start Date: 10/12/18 Status: Ordered Quantity: 50.0 Unit: tablet Repeat number: 1 aspirin 81 mg oral delayed release tablet 81 mg, By Mouth, Daily, # 30 tablet, Refills 0, Tot. Refills 0, Maintenance, 09/22/17 3:23:30 PM EST, Route to Pharmacy Electronically, [facility] 3 Start Date: 09/22/17 Stop Date: 10/22/17 Status: Ordered Quantity: 30.0 Unit: tablet Repeat number: 1 atorvastatin 20 mg oral tablet *DUE 10/05*TAKE 1 TABLET BY ORAL ROUTE EVERY DAY Start Date: 09/21/17 Status: Ordered Repeat number: 1 Biotene Mouthwash oral solution 15 mL, By Mouth, 3 times a day, PRN as needed, for dry mouth swish and spit; do not swallow, # 300 mL, 3 Refills, Maintenance, 12/16/23 11:31:00 AM EDT, Solution, [facility]/pharmacy #[id number], Partial fill upon patient request if the prescription is for a schedule II opioid drug., 15 mL By Mouth 3 times a day,x30 days,PRN:as needed,Instr:for dry mouth swish and spit; do not swallow, 162, cm, 12/16/23 10:32:00 EDT, Height, 68, kg, 10/21/22 9:20:00 EST, Dry Weight Start Date: 12/16/23 Stop Date: 04/14/24 Status: Ordered Quantity: 300.0 Unit: mL Repeat number: 4 buPROPion 300 mg/24 hours (XL) oral tablet, extended release TAKE 1 TABLET BY MOUTH EVERY DAY IN THE MORNING Start Date: 08/06/22 Status: Ordered Repeat number: 1 carbidopa-levodopa 25 mg-100 mg oral tablet 2 tablet, By Mouth, 4 times a day, Take at 9a,12n,3p, and 6p (30 min before meals), # 720 tablet, 3Refills, Maintenance, 10/17/25 3:36:00 PM EST, Tablet, [facility]/pharmacy #[id number], Partial fill upon patient request if the prescription is for a schedule II opioid drug., 2 tablet By Mouth 4 times a day,x90 days,Instr:Take at 9a,12n,3p, and 6p (30 min before meals), 162, cm, 08/13/24 13:06:00 EST, Height, 60.9, kg, 05/18/24 10:10:00 EDT, Dry Weight Start Date: 10/17/25 Stop Date: 10/12/26 Status: Ordered Quantity: 720.0 Unit: tablet Repeat number: 4 carvedilol 6.25 mg oral tablet TAKE 1 TABLET TWICE A DAY Start Date: 09/21/17 Status: Ordered Repeat number: 1 Colace sodium 100 mg oral capsule 100 mg, 1, capsule, By Mouth, 2 times a day, for 90 days, take with plenty of water, # 180 capsule,Refills 2, Tot. Refills 2, Hard Stop 02/12/25 10:50:00 AM EDT, 05/18/24 10:50:00 AM EDT, Route to Pharmacy Electronically, [facility]/pharmacy #[id number], Partial fill upon patient request if the prescription is fora schedule II opioid drug., 162, cm, 05/18/24 10:10:00 EDT, Height, 60.9, kg, 05/18/24 10:10:00 EDT, Dry Weight Start Date: 05/18/24 Stop Date: 02/12/25 Status: Ordered Quantity: 180.0 Unit: capsule Repeat number: 3 Colace sodium 100 mg oral capsule 100 mg, 1, capsule, By Mouth, 2 times a day, PRN, take with plenty of water, # 180 capsule, Refills2, Tot. Refills 2, Maintenance, Constipation, 02/12/25 10:50:00 AM EDT, Route to Pharmacy Electronically, [facility]/pharmacy #[id number], Partial fill upon patient request if the prescription is for a schedule II opioid drug., 162, cm, 08/13/24 13:06:00 EST, Height, 60.9, kg, 05/18/24 10:10:00 EDT, Dry Weight Start Date: 02/12/25 Stop Date: 11/09/25 Status: Ordered Quantity: 180.0 Unit: capsule Repeat number: 3 lithium 300 mg oral tablet, extended release TAKE 1 TABLET BY MOUTH AT BEDTIME TAKE ON TUESDAY, TUESDAY, TUESDAY. Start Date: 08/06/22 Status: Ordered Repeat number: 1 LORazepam 0.5 mg oral tablet TAKE 1 TABLET BY MOUTH EVERY DAY NEEDED FOR ANXIETY Start Date: 08/06/22 Status: Ordered Repeat number: 1 olmesartan 5 mg oral tablet TAKE 2 TABLETS BY MOUTH EVERY DAY Start Date: 08/06/22 Status: Ordered Repeat number: 1 oxybutynin 5 mg oral tablet 0.5 tablet = 2.5 mg, By Mouth, Daily at bedtime, # 15 tablet, 3 Refills, Maintenance, 04/22/23 10:15:00 AM EDT, Tablet, [facility]/pharmacy #[id number], Partial fill upon patient request if the prescription is fora schedule II opioid drug., 162, cm, 04/22/23 9:29:00 EDT, Height, 68, kg, 10/21/22 9:20:00 EST, Dry Weight Start Date: 04/22/23 Status: Ordered Quantity: 15.0 Unit: tablet Repeat number: 4 Parkinson Disease-specific physical and occupational therapy to improve gait, balance, and posture; Parkinson Disease-specific physical and occupational therapy to improve gait, balance, and posture;assistance with ADLS, See Instructions, # 1 Unknown, Refills 0, Tot. Refills 0, Maintenance, Parkinson Disease-specific physical and occupational therapy to improve gait, balance, and posture; assistance with ADLS, 08/12/22 11:09:00 AM EST, Supply Start Date: 08/12/22 Status: Ordered Quantity: 1.0 Unit: Unknown Repeat number: 1 PT eval and treat PT eval and treat, See Instructions, # 1 each, Refills 0, Tot. Refills 0, Maintenance, PT eval and treat, 08/06/22 3:53:00 PM EST, Compound Start Date: 08/06/22 Status: Ordered Quantity: 1.0 Unit: each Repeat number: 1 QUEtiapine 25 mg oral tablet 25 mg, 1, tablet, By Mouth, Daily at bedtime, # 30 tablet, Refills 0, Tot. Refills 0, Maintenance, 05/17/23 2:04:00 PM EDT, Route to Pharmacy Electronically, [facility]/pharmacy #[id number], Partial fill upon patient request if the prescription is for a schedule II opioid drug., 162, cm, 04/22/23 9:29:00 EDT, Height, 68, kg, 10/21/22 9:20:00 EST, Dry Weight Start Date: 05/17/23 Status: Ordered Quantity: 30.0 Unit: tablet Repeat number: 1 Walker with wheels Walker with wheels, See Instructions, # 1 each, Refills 0, Tot. Refills 0, Maintenance, Walker withwheels, 08/06/22 3:53:00 PM EST, Compound Start Date: 08/06/22 Status: Ordered Quantity: 1.0 Unit: each Repeat number: 1 Wheelchair See Instructions, # 1 Unknown, Maintenance, Diagnosis: Parkinson Disease (G.20), 08/12/22 11:15:00 AM EST, Supply Start Date: 08/12/22 Status: Ordered Quantity: 1.0 Unit: Unknown Repeat number: 1 Vital Signs Most recent to oldest [Reference Range]: 1 2 Height 162 cm (08/13/24 1:06 PM) 162 cm (08/13/24 12:57 PM) Weight 64.4 kg (08/13/24 12:57 PM) Oxygen Saturation [94-100 %] 98 % (08/13/24 12:57 PM) Pulse Rate [55-90 bpm] 74 bpm (08/13/24 12:57 PM) Body Mass Index [18.5-24.99 kg/m2] 24.54 kg/m2 (08/13/24 12:57 PM) Blood Pressure [90-138/55-84 mm Hg] 126/ 61mm Hg (08/13/24 12:57 PM) Mode of Delivery (Oxygen) Room air (08/13/24 12:57 PM) Blood pressure sites Arm, left (08/13/24 12:57 PM) Weight Obtained Via Bed scale (08/13/24 12:57 PM) Social History Social History Type Response Smoking Status Former smoker, quit more than 30 days ago entered on: 08/01/23 Sex Sex Representation Female (finding) Note * Tiffany Otero: PERFORM Event Display: Patient Education/Instruction Authored Date: Ambulatory Adult Visit Summary [facility] [address] [place] [id number] Name: MEGHANA BURGOS : 1945?? Visit: 08/13/2024 12:51?? Ambulatory Visit Instructions ?? Your Care Team Primary Care Provider Oliver Keita MD? This Visit Provider Oliver Stevens MD Vitals Signs Pulse Rate: 74 bpm Height: 162 cm Systolic Blood Pressure: 126 mm Hg Weight: 64.4 kg Diastolic Blood Pressure: 61 mm Hg Body Mass Index: 24.54 kg/m2 Oxygen Saturation: 98 % Body surface area: 1.7 Medications The list below reflects the information in our records and provided by you today along with any changes made during this visit. Please continue your medications until treatment is completed or stopped by your provider. If this is different from the information you have or there are other questions,please contact the prescribing provider. What How Much When Instructions Changed Carbidopa-Levodopa (carbidopa-levodopa 25 mg-100 mg oral tablet) 1 tab(s) Oral 4 times a day Duration: 90 Days 30 min before meals ?? Changed Carbidopa-Levodopa (carbidopa-levodopa 25 mg-100 mg oral tablet) 2 tab(s) Oral 4 times a day Duration: 90 Days Take at 9a,12n,3p, and 6p (30 min before meals) ?? Pickup at [facility]/pharmacy #[id number] Changed Docusate (Colace sodium 100 mg oral capsule) 1 capsule Oral Twice a day Duration: 90 Days take with plenty of water ?? Changed Docusate (Colace sodium 100 mg oral capsule) 1 capsule Oral Twice a day as needed for Constipation take with plenty of water ?? Pickup at [facility]/pharmacy #[id number] Unchanged Acetaminophen (acetaminophen 500 mg oral tablet) 1 tab(s) Oral Every 4 hours as needed for as needed for pain Unchanged Aspirin (aspirin 81 mg oral delayed release tablet) 81 Milligram Oral Daily Duration: 30 Days Unchanged Atorvastatin (atorvastatin 20 mg oral tablet) *DUE *TAKE 1 TABLET BY ORAL ROUTE EVERY DAY ?? Unchanged BuPROpion (buPROPion 300 mg/ 24 hours (XL) oral tablet, extended release) TAKE 1 TABLET BY MOUTH EVERY DAY IN THE MORNING ?? Unchanged Carvedilol (carvedilol 6.25 mg oral tablet) TAKE 1 TABLET TWICE A DAY ?? Unchanged Durable Medical Equipment (Wheelchair) See instructions Diagnosis: Parkinson Disease (G.20) ?? Unchanged Harrell (lithium 300 mg oral tablet, extended release) TAKE 1 TABLET BY MOUTH AT BEDTIME TAKE ON TUESDAY, TUESDAY, TUESDAY. ?? Unchanged Lorazepam (LORazepam 0.5 mg oral tablet) TAKE 1 TABLET BY MOUTH EVERY DAY NEEDED FOR ANXIETY ?? Unchanged Miscellaneous Rx (Parkinson Disease-specific physical and occupational therapy to improvegait, balance, and posture;) See instructions Parkinson Disease-specific physical and occupational therapy to improve gait, balance, and posture;assistance with ADLS ?? Unchanged Miscellaneous Rx (PT eval and treat) See instructions PT eval and treat ?? Unchanged Miscellaneous Rx (Walker with wheels) See instructions Walker with wheels ?? Unchanged Olmesartan (olmesartan 5 mg oral tablet) TAKE 2 TABLETS BY MOUTH EVERY DAY ?? Unchanged Oxybutynin (oxybutynin 5 mg oral tablet) 0.5 tab(s) Oral Daily at Bedtime Unchanged Quetiapine (QUEtiapine 25 mg oral tablet) 1 tab(s) Oral Daily at Bedtime Unchanged Saliva Substitutes (Biotene Mouthwash oral solution) 15 Milliliter Oral 3 times a day as needed for as needed Duration: 30 Days for dry mouth swish and spit; do not swallow ?? Pharmacy Information [facility]/pharmacy #[id number]: [address] [place], [place] [phone] Medications and Immunizations Administered Medications Given During Visit No medications given during this visit.?? Allergies (NKA means No Known Allergies) morphine Common Emergency Awareness Tips IS IT A STROKE? Act FAST and Check for these signs: FACE Does the face look uneven? ARM Does one arm drift down? SPEECH Does their speech sound strange? TIME Call at any sign of stroke ?? Heart Attack Signs Chest discomfort: Most heart attacks involve discomfort in the center of the chest and lasts more than a few minutes, or goes away and comes back. It can feel like uncomfortable pressure, squeezing, fullness or pain. Discomfort in upper body: Symptoms can include pain or discomfort in one or both arms, back, neck, jaw or stomach. Shortness of breath: With or without discomfort. Other signs: Breaking out in a cold sweat, nausea, or lightheaded. Remember, MINUTES DO MATTER. If you experience any of these heart attack warning signs, call to get immediate medical attention! ?? Smoking can increase your chances of developing chronic health problems and can cause harmful effects to other family members in your house. If you smoke, you are strongly encouraged to quit. Please call [facility] Link at [phone] or [phone]-[employer] ([phone]) or log in to [email or web address] for referrals to smoking cessation programs. ?? The National Suicide Prevention Hotline is available 04/04 if you or someone you know needs to find a reason to keep living. By calling 3-833-122-[employer] (7122) you'll be connected to a skilled, trained counselor at a crisis center in your area. [facility] Portal You can view and manage your care through the patient portal or by using a health care sam of your choosing. [employer] is a website that allows you to securely view your medical information including your hospital discharge summary, office visit summaries, medications and follow-up visits. You can also request appointments, renew medications, and request access to your medical information using a health care sam of your choosing, or just ask a question. You can enroll at [email or web address] or register during your next office visit. [facility], in keeping with [facility] guidance, no longer requires face masks for staff, patientsor visitors in most situations. Similiar to time spent indoors at other locations, there is the chance that you were exposed to repiratory viruses during your time with us (such as flu or COVID-19). If you develop symptoms concerning for a viral respiratory infection, please seek testing (and treatment if indicated) from your medical provider or home test kit. ?? Disclaimer: The information provided is of a general nature and is intended to be used in conjunction with the recommendations and advice of your health care practitioner. Every effort has been made to ensure that the information provided is accurate and complete at the time it is provided to you however, as your needs change, or, as new information becomes available, different or additional instructions may be required. ?? If you have questions, please consult with your primary care provider or pharmacist, as appropriate. This information is not intended to serve as substitution for assessment and evaluation by a qualified health care provider. If you do not have a primary care provider, you may find a [facility] provider by calling [facility] at [phone]. Patient Care team information Care Team Personnel Name: Catalina Manzanares RN Position: [facility] RN Member Role: Primary Care Nurse Name: Oliver Keita MD Position: [facility] Physician - Oncology Member Role: PCP Address: [address] [place] [address] [address] Oliver Naheed Keita III, [place], [place] [address] Telecom: Name: Marsha Mason RN Position: [facility] RN Member Role: Primary Care Nurse Name: Diana Kaplan RN Position: [facility] RN Member Role: Primary Care Nurse Name: Nelida Menjivar RN Position: [facility] RN Member Role: Primary Care Nurse Name: Savanna Paredes Position: [facility] Outreach Member Role: [employer] Physician Care Team Related Persons Name: LORETTA RUSTAM Insurance Providers Guarantor name: MEGHANA LORETTA Health Plan Information #: 1 Payer: MEDICARE PART B OUTPT Member Number: [id number] Policy Number: NA Group Number: NA Health Plan Information #: 2 Payer: [facility] Member Number: [id number] Policy Number: NA Group Number: [id number]
[2024-08-28 10:58] LABS: MANUAL DIFF FLAG NO
[2024-08-28 12:04] LABS: Basophils Absolute Auto 0.1 X10*3/uL (0.0-0.2); Basophils Percent Auto 0.8 % (0-2); Eosinophils Absolute Auto 0.3 X10*3/uL (0.0-0.4); Eosinophils Percent Auto 2.5 % (0-4); Hematocrit 32.5 % (37.0-47.0); Hemoglobin 10.4 g/dl (12.0-16.0); Imm Gran Abs Auto 0.03 X10*3/uL (0.00-0.03); Imm Gran Pct Auto 0.3 % (0.0-0.4); Lymphocytes Absolute Auto 1.8 X10*3/uL (1.2-4.9); Lymphocytes Percent Auto 16.1 % (20-40); Mean Corpuscular Hemoglobin 29.5 pg (27.0-33.0); Mean Corpuscular Volume 92.3 fL (80.0-98.0); Mean Platelet Volume 9.6 fL (9.4-12.3); Monocytes Absolute Auto 0.7 X10*3/uL (0.1-1.2); Monocytes Percent Auto 6.4 % (2-11); Neutrophils Absolute Auto 8.1 x10*3/uL (2.0-8.3); Neutrophils Percent Auto 73.9 % (45-73); Platelet Count 244 X10*3/uL (160-400); Red Blood Count 3.52 X10*6/uL (4.20-5.50); Red Cell Distribution Width 12.8 % (11.0-16.0)
[2024-08-28 12:47] LABS: Alanine Aminotransferase 6 U/L (0-31); Albumin Level 3.9 g/dL (3.5-5.0); Alkaline Phosphatase 78 U/L (39-117); Anion Gap 12 (12-20); Aspartate Amino Transferase 21 U/L (5-31); Bilirubin Total 0.3 mg/dL (0.0-1.0); Blood Urea Nitrogen 27 mg/dL (9-16); Calcium 8.7 mg/dL (8.4-10.2); Carbon Dioxide 24 mmol/L (22-29); Chloride 106 mmol/L (96-108); Cholesterol 132 mg/dL (<200); Estimated Glomerular Filt Rate 54; Glucose Fasting 97 mg/dL (60-99); HDL Cholesterol 43 mg/dL (>40); LDL Cholesterol Calculated 66 mg/dL (<100); Sodium 137 mmol/L (135-145); Total Protein 6.6 g/dL (6.5-8.0); Triglycerides 119 mg/dL (<150)
[2024-08-28 13:01] LABS: Free T4 (Free Thyroxine) 1.12 ng/dL (0.71-1.85); Thyroid Stimulating Hormone 2.78 uIU/mL (0.32-4.0)
== END 2024-08-28 09:53 | disposition home or self-care (01) ==
LOC: HO.XRAY 09:52
PROVIDERS: PCP Internal Medicine Medical Oncology; Visit Provider Internal Medicine Medical Oncology
DX: R63.4 Abnormal weight loss (principal); K22.89 Other specified disease of esophagus; R11.2 Nausea with vomiting, unspecified
CPT/HCPCS: 36415; 74246; 80053; 80061; 84439; 84443; 85025

== ENCOUNTER → 2024-08-28 10:02 | Outpatient (BNV) | payer MEDICARE, OTHER, SELFPAY | PROVIDERS: PCP Internal Medicine Medical Oncology; Visit Provider Physician Assistant Surgical | DX: K22.4 Dyskinesia of esophagus (principal); I86.4 Gastric varices; K29.70 Gastritis, unspecified, without bleeding | CPT/HCPCS: 74246 ==

== ENCOUNTER 2024-10-03 11:44 | Day surgery (SDC) | payer MEDICARE, OTHER, SELFPAY ==
--- OUTSIDE RECORDS SUMMARY | 2024-09-17 13:50 | XMS_ITS | Continuity of Care Document ---
Author Organization [facility] Address [address] [facility], [address] d Floor, [address] [place] [phone]- Support Name Relationship Address Phone PODGURSRENE, MEGHANA [...] Unknown Un available Care Team Providers Care Painting Instructor Name Role Phone Neela RIBERA, Oliver Cabrera Primary Care Physician Encounter [facility] Date(s): 08/13/24 - 09/12/24 [facility] [address] [facility] [address] [place] [address]- Attending Physician: Eduin Islas Admitting Physician: Eduin Islas Referring Physician: Eduin Islas Encounter Type: Triage Allergies, Adverse Reactions, Alerts Substance Criticality Severity [...] 3:23:30 PM EST, Route to Pharmacy Electronically, [facility] 3 Start Date: 09/22/17 Stop Date: 10/22/17 [...] Refills, Maintenance, 12/16/23 11:31:00 AM EDT, Solution, [facility]/pharmacy #[id number], Partial fill upon patient request if [...] tablet, By Mouth, 4 times a day, for 90 days, Take at 9a,12n,3p, and 6p (30 min before meals), # 720 tablet, 3 Refills, Hard Stop 10/12/26 3:36:00 PM EST, 10/17/25 3:36:00 PM EST, Tablet, [facility]/pharmacy#[id number], Partial fill upon patient request if the prescription is for a schedule II opioid drug., 162, cm, 08/13/24 13:06:00 EST, Height, 60.9, kg, 05/18/24 10:10:00 EDT, Dry Weight Start Date: 10/17/25 Stop Date: 10/12/26 Status: Ordered Quantity: 720.0 Unit: tablet Repeat number: 4 carbidopa-levodopa 25 mg-100 mg oral tablet 2 tablet, By Mouth, 4 times a day, Take at 9a,12n,3p, and 6p (30 min before meals), # 720 tablet, 3Refills, Maintenance, 10/12/26 3:36:00 PM EST, Tablet, [facility]/pharmacy #[id number], Partial fill upon patientrequest if the prescription is for a schedule II opioid drug., 2 tablet By Mouth 4 times a day,x90 days,Instr:Take at 9a,12n,3p, and 6p (30 min before meals), 162, cm, 08/13/24 13:06:00 EST, Height, 60.9, kg, 05/18/24 10:10:00 EDT, Dry Weight Start Date: 10/12/26 Stop Date: 10/07/27 Status: Ordered Quantity: 720.0 Unit: tablet Repeat number: 4 carvedilol 6.25 mg oral tablet TAKE 1 TABLET TWICE A DAY Start Date: 09/21/17 Status: Ordered Repeat number: 1 Colace sodium 100 mg oral capsule 100 mg, 1, capsule, By Mouth, 2 times a day, for 90 days, take with plenty of water, # 180 capsule,Refills 2, Tot. Refills 2, Hard Stop 11/09/25 10:50:00 AM EST, 02/12/25 10:50:00 AM EDT, Route to Pharmacy Electronically, [facility]/pharmacy #[id number], Partial fill upon patient request if [...] 10:50:00 AM EDT, Route to Pharmacy Electronically, [facility]/pharmacy #[id number], Partial fill upon patient request if [...] 10:50:00 AM EDT, Route to Pharmacy Electronically, [facility]/pharmacy #[id number], Partial fill upon patient request if [...] Refills, Maintenance, 04/22/23 10:15:00 AM EDT, Tablet, [facility]/pharmacy #[id number], Partial fill upon patient request if [...] 2:04:00 PM EDT, Route to Pharmacy Electronically, [facility]/pharmacy #[id number], Partial fill upon patient request if the prescription is for a schedule II opioid drug., 162, cm, 04/22/23 9:29:00 EDT, Height, 68, kg, 10/21/22 9:20:00 EST, Dry Weight Start Date: 05/17/23 Status: Ordered Quantity: 30.0 Unit: tablet Repeat number: 1 rotigotine 1 mg/24 hr transdermal film, extended release 1 patch, Topically, Daily, apply to clean, dry, intact skin, # 30 patch, 2 Refills, Maintenance, 09/11/24 9:22:00 AM EST, Patch, [facility]/pharmacy #[id number], Partial fill upon patient request if the prescription is for a schedule II opioid drug., 1 patch Topically Daily,Instr:apply to clean, dry, intact skin, 162, cm, 08/13/24 13:06:00 EST, Height, 60.9, kg, 05/18/24 10:10:00 EDT, Dry Weight Start Date: 09/11/24 Status: Ordered Quantity: 30.0 Unit: patch Repeat number: 3 Walker with wheels Walker with wheels, See [...] Quantity: 1.0 Unit: Unknown Repeat number: 1 Social History Social History Type Response Smoking Status Former smoker, quit more than 30 days ago entered on: 08/01/23 Sex Sex Representation Female (finding) Patient Care team information Care Team Personnel Name: Catalina Manzanares RN Position: [facility] RN Member Role: Primary Care Nurse Name: Oliver Keita MD Position: [facility] Physician - Oncology Member Role: PCP Address: [address] [place] [address] #[facility] Oliver Keita III, MD [address] Telecom: Name: Marsha Mason RN Position: [facility] RN Member Role: Primary Care Nurse Name: Diana Kaplan RN Position: [facility] RN Member Role: Primary Care Nurse Name: Nelida Menjivar RN Position: [facility] RN Member Role: Primary Care Nurse Name: Savanna Paredes Position: [facility] Outreach Member Role: [employer] Physician Care Team Related Persons Name: RUSTAM BURGOS Insurance Providers Guarantor name: MEGHANA LORETTA Health Plan Information #: 1 Payer: MEDICARE PART B OUTPT Member Number: NA Policy Number: NA Group Number: NA Health Plan Information #: 2 [address]: [facility] Member Number: NA Policy Number: NA Group Number: NA
--- OUTSIDE RECORDS SUMMARY | 2024-09-17 13:50 | XMS_ITS ---
Author Organization Oliver Keita III, MD Address [address] [place] [address] Care Team Providers Care Foundry Hand Name Role Phone Oliver Keita Primary Care Provider [phone] REASON FOR VISIT Message Social History Sex Assigned At : Social History Observation Description Sex Assigned At Female Encounters Encounter Location Date Provider Diagnosis Oliver Keita III, MD [address] [place] [address] [place] [address] 08/23/2024 Oliver Keita Plan Of Treatment Next Appt Details Provider Name:Oliver Keita, 09/19/2024 10:30:00 AM, [address] [place] [address] [place], [address], Provider Name:Oliver Keita, 12/17/2024 10:00:00 AM, [address] [place] [address] [address], [place], [address], Progress Notes * Julienne BURGOSDOB:[birth year] (79 yo F)Acc No.[id number]:08/23/2024 Patient:?Julienne BURGOS :1945???Age:79 Y???Sex:Female Address:[facility] [address], [place] [address] * true * Date:? Generated for Kerir pena/Cecilia/eTransmitting on:?09/17/2024 01:50 PM EST
--- OUTSIDE RECORDS SUMMARY | 2024-09-17 13:50 | XMS_ITS ---
Author Organization Oliver Keita III, MD Address [address] [address] Care Team Providers Care Echocardiologist Name Role Phone Oliver Keita Primary Care Provider Allergies Allergen (clinical drug ingredient) Drug/Non Drug Allergy documented on EMR Reaction Allergy Type Onset Date Status morphine Morphine Sulfate Unknown Drug Allergy Active REASON FOR VISIT Dysphagia for one week, Episodes of vomiting for one week, Parkinson's disease, Bipolar, Cardiomyopathy, Spinal stenosis Medications Medication SIG (Take, Route, Frequency, Duration) [...] Additional Findings: Tobacco Non-User Ex-cigaret te smoker Problems Problem Type SNOMED Code ICD Code Onset Dates Problem Status W/U Status Risk Notes Problem [id number] Gastroesophageal reflux disease with esophagitis without hemorrhage (K21.00) Active confirmed His symp toms of occasional substernal burning pain suggests reflux esophagitis. Upper GI series has been ordered. She will take omeprazole. A close follow-up visit was arranged. Vital Signs Temperature 98.0 degrees Fahrenheit 08/27/20 24 Blood pressure systolic 115 mm Hg 08/27/20 24 Blood pressure diastolic 56 mm Hg 024 Heart Rate 73 /min 08/27/2024 Height 64 in 08/27/2024 Weight 139 lbs 08/27/2024 BMI 23.86 kg/m2 08/27/2024 Encounters Encounter Location Date Provider Diagnosis Oliver Keita III, MD [address] [place] [address] [address] [place], [place] [address] 08/27/2024 Oliver Keita Nausea and vomiting, unspecified vomiting type R11.2 ; Parkinsons disease G20 ; Gastroesophageal reflux disease with esophagitis without hemorrhage K21.00 ; Malignant neoplasm of sigmoid colon C18.7 ; Former smoker Z87.891 ; Spinal stenosis of lumbar region without neurogenic claudication M48.06 ; Bipolar 1 disorder with moderate milady F31.12 ; Other fracture of T11-T12 vertebra, initial encounter for closed fracture S22.088A ; Cardiomyopathy I42.9 ; 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 Yesterday she was able to eat and drink. She has gained 3 pounds. Upper GI series has been ordered. 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 She feels diffusely weak. She is compliant with her medication. She will follow-up with me on the neurologist regularly. 08/27/2024 Gastroesophageal reflux disease with esophagitis without hemorrhage (ICD-10 - K21.00) His symptoms of occasional substernal burning pain suggests reflux esophagitis. Upper GI series has been ordered. She will take omeprazole. A close follow-up visit was arranged. 08/27/2024 Malignant neoplasm o f sigmoid colon (ICD-10 - C18.7) There is no sign of recurrent colon cancer at this time. Surveillance will continue with periodic colonoscopy. 08/27/2024 Former smoker (ICD-1 0 - Z87.891) She is highly motivated not to smoke and has a plan for maintenance of abstinence. 08/27/2024 Spinal stenosis of lumbar region without neurogenic claudication (ICD-10 - M48.06) Her back pain is stable. No change in her regimen as needed. Her pain was improved with the injection yesterday 08/27/2024 Bipolar 1 disorder with moderate milady (ICD-10 - F31.12) She remains under the care of her mental health provider. No change in her medications was made. 08/27/2024 Other fracture of T11-T12 vertebra, initial encounter for closed fracture (ICD-10 - S22.088A) Her pain is much improved she is ambulatory without difficulty and feels well. Current pain is in the hip where she had the injection, which is now improving. 08/27/2024 Cardiomyopathy (ICD- 10 - I42.9) Her food expeditor has made no change in her regimen. She is short of breath only with sustained exertion. 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 She has had no palpitations or syncope. Her cardiac disease has been in remission. She will be followed closely. She denies dyspnea. 08/27/2024 Hypothyroidism, unspecified (ICD-10 - E03.9) She is clinically euthyroid. No change in her medication was necessary. Comprehensive blood work with thyroid function test was ordered today. Plan Of Treatment Medication Medication Name Sig [...] TAKE 1 TABLET BY MOUTH EVERY DAY Next Appt Details Follow Up: after labs/UGI, I n a few days after the blood work and X-ray, Reason: OV review labs and UGI, To discuss the results of the blood work and X-ray Provider Name:Oliver Keita, 09/19/2024 10:30:00 AM, [address] [place] [address] [address], [place], [address], Provider Name:Oliver Keita, 12/17/2024 10:00:00 AM, [address] [place] [address] [address], [place], [address], Progress Notes * Abraham BURGOS:[birth year] (79 yo F)Acc No.[id number]:08/27/2024 Progress Notes Patient:?Julienne BURGOS Provider:?Oliver Keita MD :1945???Age:79 Y???Sex:Female D ate:08/27/2024 Address:[address], [facility] Subjective: * Chief Complaints: * ???Dysphagia for one weekEpi sodes of vomiting for one weekParkinson's diseaseBipolarCardiomyopathySpinal stenosis * HPI: ???COVID-19 Screening:?Questions?Have you had any new onset fever, chills, cough, congestion, sore throat, shortness of breath, muscle aches??No ???:? The patient, an 79-year-old female, has been diagnosed with Parkinson's disease and has been attending physical therapy twice a week. She also participates in a Parkinson's support group. She has been experiencing stiffness and a feeling of heaviness, which are common symptoms of Parkinson's. She also reported having a good appetite and sleep. The patient had a back surgery in the past, which she believes has affected her legs. Recently, she has been experiencing episodes of vomiting, which she described as similar to egg whites. This has happened a few times, once in a restaurant and a few times at home. She also reported experiencing pain in her chest, which she described as a burning sensation. The patient also reported constipation and has been taking laxatives to manage it. * ROS:?General/Constitutional:?Admits?pain,?Discomfort with swallowing leading to vomiting.?Chills?denies.?Fatigue?admits.?Fever?denies.?ENT:?Decreased hearing?is chronic .?Respiratory:?Cough?denies.?Cardiovascular:?Chest pain with exertion?denies.?Dyspnea on exertion?denies.?Shortness of breath?denies.?Gastrointestinal:?Admits?Constipation,?occasional.?Decreased appetite?denies.?Diarrhea?denies.?Heartburn?denies.?Nausea?denies.?Rectal bleeding?denies.?Vomiting?after meals.?Hematology:?bruising?denies.?petechiae?denies.?Swollen glands?none have been noted.?Genitourinary:?Frequent urination?denies.?Musculoskeletal:?Muscle aches?denies.?Painful joints?denies.?Sciatica?denies.?Weakness?denies.?Skin:?Itching?denies.?Rash?denies.?Skin lesion(s)?denies.?Neurologic:?Difficulty speaking?denies.?Dizziness?denies.?Headache?denies.?Low back pain?denies.?Psychiatric:?Depressed mood?which is mild.? * Medical History:? * Surgical History:?right ilie ocolectomy 2002colonoscopy 12/2010colonoscopy 11/2008right knee replacement cardiac catheterization, normal 06/2014lumbar decompression 2015left knee replacement Back surgery * Hospitalization/Major Diagno stic Procedure:?[facility] 07/2022 * Family History:?Father: dece ased 76 yrs, [...] is not working. She was born in [facility] [place]. * Medications:?TakingMinoxidil for Women 2 % Solution 1 mL Externally Twice a day Vitamin C buPROPion HCl ER (XL) 300 MG Tablet Extended Release 24 Hour 1 tablet in the morning Orally Once a day Aspirin Adult Low Strength 81 MG Tablet Chewable 1 tablet Orally Once a day Carvedilol 6.25 MG Tablet 1 tablet with food Orally Twice a day PreserVision AREDS - Tablet Orally Docusate Sodium 100 MG Capsule 1 capsule as needed Orally Once a day prn constipation Olmesartan Medoxomil 5 MG Tablet 1 tablet Orally Once a day ARIPiprazole 2 MG Tablet 1 tablet Orally Once a day Carbidopa-Levodopa 10-100 MG Tablet 1 tablet Orally Three times a day Atorvastatin Calcium 20 MG Tablet TAKE 1 TABLET BY MOUTH EVERY DAY Medication List reviewed and reconciled with the patientTaking Minoxidil for Women 2 % Solution 1 mL Externally Twice a day Taking Vitamin C Taking buPROPion HCl ER (XL) 300 MG Tablet Extended Release 24 Hour 1 tablet in the morning Orally Once a day Taking Aspirin Adult Low Strength 81 MG Tablet Chewable 1 tablet Orally Once a day Taking Carvedilol 6.25 MG Tablet 1 tablet with food Orally Twice a day Taking PreserVision AREDS - Tablet Orally Taking Docusate Sodium 100 MG Capsule 1 capsule as needed Orally Once a day prn constipation Taking Olmesartan Medoxomil 5 MG Tablet 1 tablet Orally Once a day Taking ARIPiprazole 2 MG Tablet 1 tablet Orally Once a day Taking Carbidopa- Levodopa 10-100 MG Tablet 1 tablet Orally Three times a day Taking Atorvastatin Calcium 20 MG Tablet TAKE 1 TABLET BY MOUTH EVERY DAY Medication List reviewed and reconciled with the patient * Allergies:?Morphine Sulfaten o[Allergies Verified] Objective: * Vitals:?Ht: 64, Wt:139, BMI: 23.86, [...] no s3, or vascular bruits.?LUNGS:?clear to auscultation .?BREASTS:?Not examined.?ABDOMEN:?bowel sounds normal, no ascites, no organomegaly, no mass.?RECTAL EXAM:?not examined.?MUSCULOSKELETAL:?extremities unremarkable, no clubbing, cyanosis or edema.?PERIPHERAL PULSES:?normal.?NEUROLOGIC:?alert and oriented, cranial nerves 2-12 grossly intact, deep tendon reflexes 2+ symmetrical, motor strength normal upper and lower extremities, sensory exam intact.?PSYCH:?alert, oriented, mood depressed, anxious appearing.? Assessment: * Assessment: 1.?Parkinsons disease - G20 (Primary)???Notes :Her main complaint about her health these days is the Parkinson's disease and a gait apraxia is in difficulty with the activities of daily life. She feels diffusely weak. She is compliant with her medication. She will follow-up with me on the neurologist regularly.???2.?Nausea and vomiting, unspecified vomiting type - R11.2???Notes :She has had a couple episodes of vomiting for unclear reasons.? Yesterday she was able to eat and drink.? She has gained 3 pounds.? Upper GI series has been ordered.???3.?Gastroesophageal reflux disease with esophagitis without hemorrhage - K21.00???Notes :His symptoms of occasional substernal burning pain suggests reflux esophagitis.? Upper GI series has been ordered.? She will take omeprazole.? A close follow-up visit was arranged.???4.?Malignant neoplasm of sigmoid colon - C18.7???Notes :There is no sign of recurrent colon cancer at this time. Surveillance will continue with periodic colonoscopy.???5.?Former smoker - Z87.891???Notes :She is highly motivated not to smoke and has a plan for maintenance of abstinence.???6.?Spinal stenosis of lumbar region without neurogenic claudication - M48.06???Notes :Her back pain is stable. No change in her regimen as needed. Her pain was improved with the injection yesterday???7.?Bipolar 1 disorder with moderate milady - F31.12???Notes :She remains under the care of her mental health provider. No change in her medications was made.???8.?Other fracture of T11-T12 vertebra, initial encounter for closed fracture - S22.088A???Notes :Her pain is much improved she is ambulatory without difficulty and feels well. Current pain is in the hip where she had the injection, which is now improving.???9.?Cardiomyopathy - I42.9???Notes :Her food expeditor has made no change in her regimen. 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 She has had no palpitations or syncope. Her cardiac disease has been in remission. She will be followed closely. She denies dyspnea.???11.?Hypothyroidism, unspecified - E03.9???Notes :She is clinically euthyroid. No change in her medication was necessary. Comprehensive blood work with thyroid function test was ordered today.??? Plan: * Treatment: 2.?Others? Continue Atorvastatin Calcium Tablet, 20 MG, TAKE [...] tablet, Orally, Three times a day.?? * Procedure Codes:? * Preventive Medicine:? ??Counseling:?Smoking/Tobacco Use?Patient counseled on the dangers of tobacco use and urged to quit.?08/27/2024 * Follow Up:?after labs/UGI, I n a few days after the blood work and X-ray (Reason: OV review labs and UGI, To discuss the results of the blood work and X-ray) * Images: * Sign off status: Completed true * Provider:?Oliver Keita MD Date:?08/12 Generated for Printi ng/Cecilia/eTransmitting on:?09/17/2024 01:50 PM EST History and Physical Notes * HPI [...] lesion s, anicteric PERIPHERAL PULSES: normal BREASTS: Not examined MUSCULOSKELETAL: extremities unremark able, no clubbing, cyanosis or edema LYMPH NODES: no enlarged lymph no yunior,spleen normal RECTAL EXAM: not examined PSYCH: alert, oriented, moo d depressed, anxious appearing ORAL CAVITY: normal, unremarkable
--- OUTSIDE RECORDS SUMMARY | 2024-09-17 13:50 | XMS_ITS | Patient Health Record ---
Author Organization [facility] Address [address] [place] [address] Care Team Providers Care Snowmaker Name Role Phone Neela RIBERA, Oliver Primary Care Provider Harpreet Mina Jr, Papito [place] [phone] REASON FOR REFERRAL No Information SOCIAL HISTORY Sex Assigned At : Social History Observation Description Sex Assigned At Unknown Encounters Encounter Location Date Provider Diagnosis [facility] [address] [place] [address] 09/17/2024 Papito Garcia Jr [facility] [address] [place] [address] 09/11/2024 Papito Garcia Jr PLAN OF TREATMENT Next Appt Details Provider Name:Papito bolton Jr, 09/17/2024 10:00:00 AM, [address] [place] [address], [address], [place], [address], Insurance Providers Payer Name Payer Address Payer Phone Subscriber Number Group Number Insured Name Patient Relationship to Insured Coverage Start Date Coverage End Date MEDICARE OF [place] [address] [facility] [place] [address] [id number] MELISSA Del Toro MEGHANA Self - patient is the insured [employer] ([employer]) [address] [place] [id number] MELISSA Del Toro MEGHANA Self - patient is the insured
--- OUTSIDE RECORDS SUMMARY | 2024-09-17 13:50 | XMS_ITS ---
Author Organization [facility] Address [address] [place] [address] Care Team Providers Care Perianesthesia Manager Name Role Phone Oliver Keita MD Primary Care Provider Unavailab thalia Garcia Jr, Papito Unavailable REASON FOR VISIT appt Encounters Encounter Location Date Provider Diagnosis [facility] [address] [place] [address] [address] [place] [address] 09/11/2024 Papito Garcia Jr PLAN OF TREATMENT Next Appt Details Provider Name:Papito bolton Jr, 09/17/2024 10:00:00 AM, [address] [place] [address], [address], [place], [address],
--- OUTSIDE RECORDS SUMMARY | 2024-09-17 13:50 | XMS_ITS ---
Author Organization [facility] Address [address] [place] [phone] Care Team Providers Care Applications Development Consultant Name Role Phone Oliver Keita MD Primary Care Provider Papito Ruiz Jr Unavailable ALLERGIES Allergen (clinical drug ingredient) Drug/Non Drug Allergy documented on EMR Reaction Allergy Type Onset Date Status morphine Morphine Unknown Drug Allergy Active REASON FOR VISIT Patient presents today for esophageal motility issues MEDICATIONS Medication SIG (Take, Route, Frequency, Duration) Notes Start Date End Date Status Olmesartan Medoxomil 20 MG TAKE 1/2 TABL ET BY MOUTH DAILY Oral for 90 Active Atorvastatin Calcium 20 MG Oral for 90 Active Gabapentin 100 MG PLEASE SEE ATTACHED FOR DETAILED DIRECTIONS Oral for 30 Active LORazepam 0.5 MG TAKE 1 TABLET BY LINDA TH EVERY DAY NEEDED FOR ANXIETY Oral for 90 Active Docusate Sodium 100 MG TAKE 1 CAPSULE BY MOUTH TWICE A DAY TAKE WITH PLENTY OF WATER Oral for 90 Active Carbidopa-Levodopa 25-100 MG Oral for 90 Active Carbidopa-Levodopa ER 25-100 MG TAKE 1 TABLET BY MOUTH 3 TIMES A DAY BEFORE MEALS Oral for 90 Active Keno Carbonate ER 300 MG Oral for 84 Active Escitalopram Oxalate 10 MG Oral for 90 Active buPROPion HCl ER (XL) 300 MG Oral for 90 Active Brimonidine Tartrate 0.2 % Ophthalmic for 18 Active ARIPiprazole 2 MG Oral for 90 Active Neupro 1 MG/24HR Transdermal for 30 Active [facility] Stool Softener 100 MG TAKE 1 CAPSULE BY MOUTH 2 TIMES A DAY X 90 DAYS, TAKE WITH PLENTY OF WATER Oral for 90 Active Carvedilol 6.25 MG Oral for 90 Active SOCIAL HISTORY Tobacco Use: Social History Observation Description Date Details (start date - stop date) Never Smoker NA - NA Sex Assigned At : Social History Observation Description Sex Assigned At Unknown Tobacco Use/Smoking Question Answer Notes Patient is a nonsmoker PROBLEMS Problem Type ICD Code Onset Dates Problem Status W/U Status Risk SNOMED Code Notes Problem Abnormal UGI series (R93.3) Active confirmed [id number] VITAL SIGNS BMI 26.17 kg/m2 09/17/2024 Blood pressure systolic 000 mm Hg 09/17/19 25 Blood pressure diastolic 00 mm Hg 025 Height 5 ft 0 in in 09/17/2024 Temperature 97.1 degrees Fahrenheit 09/17/19 25 Weight 134 lbs 09/17/2024 Encounters Encounter Location Date Provider Diagnosis [facility] [address] [facility] [address] [place] [phone] 09/17/2024 Papito Garcia Jr Abnormal UGI series R93.3 ASSESSMENTS Encounter Date Diagnosis Assessment Notes Treatment Notes Treatment Clinical Notes 09/17/2024 Abnormal UGI series (ICD-10 - R93.3) PLAN OF TREATMENT Future Test Test Name Order Date UPPER GI ENDOSCOPY 09/17/2024 Next Appt Details Provider Name:Papito bolton Jr, 10/03/2024 01:00:00 PM, [address] [place] [address] , [place], [place], [phone],
--- OUTSIDE RECORDS SUMMARY | 2024-09-17 13:51 | XMS_ITS ---
Author Organization Oliver Keita III, MD Address [address] [place] [address] Care Team Providers Care Doorperson Name Role Phone Oliver Keita Primary Care Provider [phone] REASON FOR VISIT Requesting Appointment / Follow Up Social History Sex Assigned At : Social History Observation Description Sex Assigned At Female Encounters Encounter Location Date Provider Diagnosis Oliver Keita III, MD [address] [place] [address] [place] [address] 06/28/2024 Oliver Keita Plan Of Treatment Next Appt Details Provider Name:Oliver Keita, 09/19/2024 10:30:00 AM, [address] [place] [address] [place], [phone], Provider Name:Oliver Keita, 12/17/2024 10:00:00 AM, [address] [place] [address] [place], [place], [phone], Progress Notes * Julienne BURGOSB:[birth year] (79 yo F)Acc No.[id number]:06/28/2024 Patient:?Julienne BURGOS :1945???Age:79 Y???Sex:Female Address:[facility] [address], [place] [address] * true * Date:? Generated for Kerri pena/Cecilia/eTransmitting on:?09/17/2024 01:50 PM EST
--- OUTSIDE RECORDS SUMMARY | 2024-09-17 13:51 | XMS_ITS | Patient Health Record ---
Author Organization Oliver Keita III, MD Address [address] [place] [address] Care Team Providers Care Sign Painter Apprentice Name Role Phone Oliver Keita Primary Care Provider Allergies Allergen (clinical drug ingredient) Drug/Non Drug Allergy documented on EMR Reaction Allergy Type Onset Date Status morphine Morphine Sulfate Unknown Drug Allergy Active Results Component Value Reference Range Notes Complete Blood Count Auto Di ff Reviewed date:09/01/2024 05:58:21 AM Interpretation: Performing Lab:[facility], [address] [place] [id number] Notes/Report: White Blood Count 11.0 4.8-10.8 X10*3/uL Red Blood Count 3.52 4.20-5.50 X10*6/uL Hemoglobin 10.4 12.0-16.0 g/dl Hematocrit 32.5 37.0-47.0 % Mean Corpuscular Volume 92.3 80.0-98.0 fL Mean Corpuscular Hemoglobin 29.5 27.0-33.0 pg Mean Corpuscular HGB Conc 32.0 31.0-35.0 g/dl Red Cell Distribution Width 12.8 11.0-16.0 % Platelet Count 244 160-400 X10*3/uL Mean Platelet Volume 9.6 9.4-12.3 fL Neutrophils Percent Auto 73.9 45-73 % Imm Gran Pct Auto 0.3 0.0-0.4 % Lymphocytes Percent Auto 16.1 20-40 % Monocytes Percent Auto 6.4 2-11 % Eosinophils Percent Auto 2.5 0-4 % Basophils Percent Auto 0.8 0-2 % NRBC Pct Auto 0.0 0.0-0.2 /100WBC Neutrophils Absolute Auto 8.1 2.0-8.3 x10*3/uL Imm Gran Abs Auto 0.03 0.00-0.03 X10*3/uL Lymphocytes Absolute Auto 1.8 1.2-4.9 X10*3/uL Monocytes Absolute Auto 0.7 0.1-1.2 X10*3/uL Eosinophils Absolute Auto 0.3 0.0-0.4 X10*3/uL Basophils Absolute Auto 0.1 0.0-0.2 X10*3/uL NRBC Abs Auto 0.000 0.0-0.012 X10*3/uL Comprehensive [place]. Panel Fa st Reviewed date:09/01/2024 05:58:21 AM Interpretation: Performing Lab:[facility], [address] [place] [phone] Notes/Report: Sodium 137 135-145 mmol/L Potassium 5.0 3.3-5.1 mmol/L Slight Hemolysis.Interpret result with caution. Chloride 106 96-108 mmol/L Carbon Dioxide 24 22-29 mmol/L Anion Gap 12 12-20 Blood Urea Nitrogen 27 9-16 mg/dL Creatinine 0.99 0.5-1.4 mg/dL Estimated Glomerular Filt Rate 54 Chronic Kidney Disease: Estimated GFR < 60 mL/min/1.73m2 Severe Kidney Disease: Estimated GFR < 15 mL/min/1.73m2 Glucose Fasting 97 60-99 mg/dL Calcium 8.7 8.4-10.2 mg/dL Bilirubin Total 0.3 0.0-1.0 mg/dL Aspartate Amino Transferase 21 5-31 U/L Slight Hemolysis.Interpret result with caution. Alanine Aminotransferase 6 0-31 U/L Total Protein 6.6 6.5-8.0 g/dL Albumin Level 3.9 3.5-5.0 g/dL Alkaline Phosphatase 78 39-117 U/L Lipid Panel Reviewed date:09/01/2024 05:58:22 AM Interpretation: Performing Lab:[address] [phone] Notes/Report: Triglycerides 119 <150 mg/dL Desirable Triglyceride: less than 150 mg/dL Borderline High Triglyceride 150-199 mg/dL High Triglyceride: 200-499 mg/dL Very High Triglyceride: greater than or equal to 5OO mg/dL Cholesterol 132 <200 mg/dL Desirable Cholesterol: less than 200 mg/dL Borderline High Cholesterol: 200-239 mg/dL High Cholesterol: greater than 239 mg/dL LDL Cholesterol Calculated 66 <100 mg/dL Desirable LDL: less than 100 mg/dL Near Optimal/Above Optimal LDL: 110-129 mg/dL Borderline High LDL: 130-159 mg/dL High LDL: 160-189 mg/dL Very High LDL: greater than or equal to 190 mg/dL HDL Cholesterol 43 >40 mg/dL Desirable HDL: greater than 40 mg/dL Note: This HDL assay may give artificially low results in patients with liver disease. Free T4 (Free Thyroxine) Reviewed date:09/01/2024 05:58:22 AM Interpretation: Performing Lab:[facility], [address] [place] [phone] Notes/Report: Free T4 (Free Thyroxine) 1.12 0.71-1.85 ng/dL Thyroid Stimulating Hormone Reviewed date:09/01/2024 05:58:22 AM Interpretation: Performing Lab:[address] [phone] Notes/Report: Thyroid Stimulating Hormone 2.78 0.32-4.0 uIU/mL Note: A sustained TSH level above 2.5 uIU/mL may warrant further investigation. TSH 3rd Generation ([facility]) FL upper GI w air Reviewed date:09/01/2024 05:58:21 AM Interpretation: Performing Lab: Notes/Report: [address] [address] Fluoroscopy Report Signed Patient: Julienne Longoria MR#: [id number] : 1945 Acct:[id number] Age/Sex: 79 / F ADM Date: 08/28/24 Loc: HO.XRAY Attending Dr: Oliver Keita MD Ordering Physician: Oliver Keita MD Date of Service: 08/28/24 Procedure(s): FL upper GI w air Accession Number(s): [id number] cc: Oliver Keita MD EXAMINATION: XR FLUOROSCOPY UPPER GI WITH AIR CLINICAL INFORMATION: Odynophagia. Nausea. COMPARISON: None TECHNIQUE: Fluoroscopic air contrast upper GI examination was performed utilizing standard techniques with thin and thick barium and effervescent granules. Numerous spot images were obtained. FINDINGS: Lateral cine images of the oropharynx and hypopharynx demonstrate normal swallow mechanism with normal epiglottic inversion and soft palate elevation. There is trace laryngeal penetration with thick barium. No tracheal penetration, glottic or subglottic aspiration identified. No nasopharyngeal reflux present. Hypopharyngeal structures appear normal without evidence of mass or diverticulum. There is mild cricopharyngeal achalasia. Dual and single contrast images of the esophagus demonstrate a patulous esophagus with a normal contour. There is a granular appearance of the esophageal mucosa, suggestive of esophagitis. No strictures or ulcerations are present. Esophageal peristalsis is severely disorganized. A small type I hiatal hernia is present. There is an irregular appearance of the mucosa in the hiatal hernia with probable filling defects that extend into the fundus of the stomach. This results in intraluminal narrowing and delay in transit of the contrast into the stomach. No significant gastroesophageal reflux was seen during the course of the examination and on reflux views. Dual contrast and single contrast images of the stomach demonstrated a normal contour. There is thickening of the gastric mucosal folds throughout the stomach, suggestive of gastritis. Again noted is the irregular appearance of the mucosa in the hiatal hernia that extends into the fundus of the stomach. Contrast freely passed into the gastric antrum and duodenal bulb without delay. Single and air-contrast images of the duodenal bulb demonstrate no abnormality. The duodenal sweep has a normal appearance, course, and mucosal fold appearance. The imaged proximal jejunum has a normal fold pattern and caliber. FLUOROSCOPY TIME: 5 minutes 13 seconds Number of Spot Images: 10 Number of Cine: 13 DOSE AREA PRODUCT: 2436 uGy-m2 (microgray-meter squared) FL/FL upper GI w air IMPRESSION: 1. Trace laryngeal penetration with thick barium. 2. Mild cricopharyngeal achalasia. 3. Patulous esophagus with severely disorganized peristalsis consistent with esophageal dysmotility. 4. Granular appearance of the esophageal mucosa, suggestive of esophagitis. 5. Small type I hiatal hernia. 6. Irregular appearance of the mucosa in the hiatal hernia with probable filling defects that extend into the fundus the stomach. This results in intraluminal narrowing and delay in transit of contrast into the stomach. Findings suggest an INFILTRATING MASS, with major differential of esophageal/gastric varices. Favor mass given the appearance. Recommend correlation with EGD. 7. Thickening of the gastric mucosal folds, suggestive of gastritis. This procedure was performed by Travis Olivarez PA-C, and supervised by Dr. Zaldivar Electronically signed by: Brody Zaldivar MD 08/29/2024 04:28 PM [facility] Dictated By: Travis Olivarez Signed By: <Electronically signed by Travis Olivarez in OV> 08/29/24 1628 <Electronically signed by Brody Zaldivar MD in OV> 08/29/24 1631 DD/ 1035 TD/TT: 08/28/24 1045 Tool Analyst: [place] [id number] Fluoroscopy Report Signed Patient: Joanna Longoria MR#: [id number] : 1945 Acct:[id number] Age/Sex: 79 / F ADM Date: 08/28/24 Loc: HO.XRAY Attending Dr: Oliver Keita MD Ordering Physician: Oliver Keita MD Date of Service: 08/28/24 Procedure(s): FL upp er GI w air Accession Number(s): [id number] cc: Oliver Keita MD EXAMINATION: XR FLUOROSCOPY UPPER GI WITH AIR CLINICAL INFORMATION: Odynophagia. Nausea. COMPARISON: None TECHNIQUE: Fluoroscopic air contrast upper GI examination was performed utilizing standard techniques with thin and thick barium and effervescent granules. Numerous s pot images were obtained. FINDINGS: Lateral cine images of the oropharynx and hypopharynx demonstrate normal swallow mecha nism with normal epiglottic inversion and soft palate elevation. Th ere is trace laryngeal penetration with thick barium. No tracheal penetration, glottic or subglottic aspiration identified. No nasopharyngeal reflux present. Hypopharyngeal structures appear normal withou t evidence of mass or diverticulum. There is mild cricopharyngeal achalasia. Dual and single cont rast images of the esophagus demonstrate a patulous esophagus with a nor mal contour. There is a granular appearance of the esophageal mucosa, suggestive of esophagitis. No strictures or ulcerations are pres ent. Esophageal peristalsis is severely disorganized. A small type I hiata l hernia is present. There is an irregular appearance of the mu cosa in the hiatal hernia with probable filling defects that extend into the fundus of the stomach. This results in intraluminal narrowi ng and delay in transit of the contrast into the stomach. No signific ant gastroesophageal reflux was seen during the course of the examination and on reflux views. Dual contrast and si ngle contrast images of the stomach demonstrated a normal contour. Ther e is thickening of the gastric mucosal folds throughout the stoma ch, suggestive of gastritis. Again noted is the irregular appearance of the mucosa in the hiatal hernia that extends into the fundus of t he stomach. Contrast freely passed into the gastric antrum and duodenal bulb without delay. Single and air-contr ast images of the duodenal bulb demonstrate no abnormality. The duodenal sweep has a normal appearance, course, and mucosal fold appeara nce. The imaged proximal jejunum has a normal fold pattern and caliber. FLUOROSCOPY TIME: 5 minutes 13 seconds Number of Spot Image s: 10 Number of Cine: 13 DOSE AREA PRODUCT: 2436 uGy-m2 (microgray-meter squared) F L/FL upper GI w air IMPRESSION: 1. Trace laryngeal penetration with thick barium. 2. Mild cricopharyng eal achalasia. 3. Patulous esophagu s with severely disorganized peristalsis consistent with esophageal dysmotility. 4. Granular appearan ce of the esophageal mucosa, suggestive of esophagitis. 5. Small type I hiat al hernia. 6. Irregular appeara nce of the mucosa in the hiatal hernia with probable filling def ects that extend into the fundus the stomach. This results in intralumi nal narrowing and delay in transit of contrast into the stomach. Finding s suggest an INFILTRATING MASS, with major differential of esophageal/gastric varices. Favor mass given the appearance. Recommen d correlation with EGD. 7. Thickening of the gastric mucosal folds, suggestive of gastritis. This procedure was performed by Travis Olivarez PA-C, and supervised by Dr. Zaldivar Electronically mao d by: Brody Zaldivar MD 08/29/2024 04:28 PM EST RP Dictated By: Abdirashid Olivarez Signed By: <Electronically signed by Travis Olivarez in OV> 08/29/24 1628 <Electronically sign ed by Brody Zaldivar MD in OV> 08/29/24 1631 DD/ 1035 TD/TT: 08/28/24 1045 Tool Analyst: Reason For Referral Reason 2 recent falls worse satish parkinson's disease Diagnosis 1 Parkinsons disease ( G20) Referral Organization Oliver Keita III, MD Referring Provider First Name Oliver Referring Provider Last Name Keita Referring Provider Speciality Internal M edicine Referred Organization [facility] Referred Provider Megan Anderson Referred Address [address] [place] [address],[place], [place],[id number], Referred Provider Specialty Nurse Chris rosa General Notes Anita Desouza CMA 09/13 09:16:32 AM EST > ref/demo/progress [...] First Name Oliver Referring Provider Last Name Keita Referring Provider Speciality Internal M edicine Referred Provider Linsey Boggs Referred Provider Specialty Urology General Notes Anita Judd MA 06/13/2024 10:32:26 AM > ref/demo/progress notes faxed to Rosa Maria LAROSE Suzanne CMA 07/09/2024 03:23:00 PM > pt was seen today and has follow up appt on 08/27/2024 Referral Priority Routine Referral Appointment Date 07/09/2024 Reason Consult and Treat Diagnosis 1 Acute esophageal obs truction (K22.2) Diagnosis 2 Esophageal abnormali ty (K22.9) Referral Organization Oliver Keita III, MD Referring Provider First Name Oliver Referring Provider Last Name Neela Referring Provider Speciality Internal M edicine Referred Provider Oliver Skinner Referred Provider Specialty Gastroentero logy General Notes Deysi Anderson ASMA 03:22:40 PM >Referral Faxed to Gastro- Dr. Skinner and Jose. Referral Priority Routine Medications Medication SIG (Take, Route, Frequency, Duration) [...] Problem Status W/U Status Risk Notes Problem 2183008 Former smoker (Z87.891) Active confirmed She is highly motivated not to smoke and has a plan for maintenance of abstinence. Problem 07217927 Weight loss (R63.4) Active confirmed She has gained back 3 pounds. Her weight will be observed. Problem 898621894 Malignant neoplasm of sigmoid colon (C18.7) Active confirmed There is no sign of recurrent colon cancer at this time. Surveillance will continue with periodic colonoscopy. Problem Hypothyroidism (98220807) Hypothyroidism, unspecified (E03.9) Active confirmed She is clinically euthyroid. No change in her medication was necessary. Comprehensive blood work with thyroid function test was ordered today. Problem Hyperlipidemia (76331694) Hyperlipidemia, unspecified (E78.5) Active confirmed Her lipids have been stable. A fasting lipid profile is pending. Problem Osteoarthritis (450590664) Unspecified osteoarthritis, unspecified site (M19.90) Active confirmed She has mild arthritic pain which is intermittent in the hips, knees and shoulders. Her that she is using ibuprofen. Problem Other fracture o f T11-T12 vertebra, initial encounter for closed fracture (S22.088A) Active confirmed Her pain is much improved she is ambulatory without difficulty and feels well. Current pain is in the hip where she had the injection, which is now improving. Problem 69400385 Essential hypertension (I10) Active confirmed Her blood pressure has been controlled at 117/61. I have recommended aggressive weight loss and sodium restriction. Problem Osteoporosis (70487833) Osteoporosis (M81.0) Active confirmed She will begin on Os-Rashawn 500 mg twice a day and 1000 units of vitamin D. If needed, alendronate will be added. Problem 25082381 Bipolar 1 disorder with moderate milady (F31.12) Active confirmed She remains under the care of her mental health provider. No change in her medications was made. Problem 01732072 Left bundle branch block (I44.7) Active confirmed She has no cardiovascular symptoms at this time. 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 She is short of breath only with sustained exertion. Problem 46872172 Spinal stenosis of lumbar region without neurogenic claudication (M48.06) Active confirmed Her back pain is stable. No change in her regimen as needed. Her pain was improved with the injection yesterday Problem 260047545 Osteoarthritis (M19.90) Active confirmed She has mild arthritis in the knees, shoulders and hands. No change in her regimen as needed today. She is able to conduct all of the activities of daily living without impairment. Problem Atherosclerosis of coronary artery without angina pectoris (193034638147708 ) [place] heart disease of [place] coronary artery w/o ang pctrs (I25.10) Active confirmed She denies any recent exertional chest pain or angina. She has had no palpitations or syncope. Her cardiac disease has been in remission. She will be followed closely. She denies dyspnea. Problem 96122476 Parkinsons disease (G20) Active confirmed Her main complaint about her health these days is the Parkinson's disease and a gait apraxia is in difficulty with the activities of daily life. She feels diffusely weak. She is compliant with her medication. She will follow-up with me on the neurologist regularly. Problem 00521513 Hyperlipidemia, unspecified hyperlipidemia type (E78.5) Active confirmed Her lipids are currently stable. Comprehensive blood work with a fasting lipid profile has been ordered. Problem 901760758 Urinary incontinence, unspecified type (R32) Active confirmed Problem 867468692 Gastroesophageal reflux disease with esophagitis without hemorrhage (K21.00) Active confirmed His symptoms of occasional substernal burning pain suggests reflux esophagitis. Upper GI series has been ordered. She will take omeprazole. A close follow-up visit was arranged. Problem 505431684 Transient ischemic attack (G45.9) Active confirmed A Holter monitor and an echocardiogram have been ordered. She will continue on aspirin. Problem 709035449 Acute esophageal obstruction (K22.2) Active confirmed Vital Signs Heart Rate 73 /min 08/27/2024 Temperature 98.0 degrees Fahrenheit 08/27/2024 Blood pressure diastolic 56 mm Hg 08/27/2024 Height 64 in 08/27/2024 Blood pressure systolic 115 mm Hg 08/27/2024 Weight 139 lbs 08/27/2024 BMI 23.86 kg/m2 08/27/2024 Encounters Encounter Location Date Provider Diagnosis Oliver Keita III, MD [address] [place] [address] [place] [address] 10/06/2023 Oliver Keita Malignant neoplasm o f sigmoid colon C18.7 ; Former smoker Z87.891 ; Overweight E66.3 ; Spinal stenosis of lumbar region without neurogenic claudication M48.06 ; Bipolar 1 disorder with moderate milady F31.12 ; Hyperlipidemia, unspecified E78.5 ; Cardiomyopathy I42.9 ; Athscl heart disease of [place] coronary artery w/o ang pctrs I25.10 and Parkinsons disease G20 Oliver Keita III, MD [address] [place] [address] [place] [address] 10/14/2023 Oliver Keita Weight loss R63.4 ; Athscl heart disease of [place] coronary artery w/o ang pctrs I25.10 ; [...] and Cardiomyopathy I42.9 Oliver Keita III, MD [address] [place] [address] [place] [address] 12/15/2023 Oliver Keita Weight loss R63.4 ; [...] Essential hypertension I10 Oliver Keita III, MD [address] [place] [address] [place] [address] 03/30/2024 Oliver Keita Weight loss R63.4 ; [...] Essential hypertension I10 Oliver Keita III, MD [address] [place] [address] [place] [address] 06/11/2024 Oliver Keita Hypothyroidism, unspecified E03.9 ; [...] ischemic attack G45.9 Oliver Keita III, MD [address] [place] [address] [place] [address] 08/27/2024 Oliver Keita Nausea and vomiting, unspecified [...] Cardiomyopathy I42.9 ; Athscl heart disease of [place] coronary artery w/o ang pctrs I25.10 and Hypothyroidism, unspecified E03.9 Oliver Keita III, MD [address] [place] [address] [place] [address] 10/11/2023 Oliver Keita III, MD [address] [place] [address] [place] [address] 10/17/2023 Oliver Keita III, MD [address] [place] [address] [place] [address] 10/17/2023 Oliver Keita III, MD [address] [place] [address] 10/19/2023 Oliver Keita III, MD [address] [place] [address] [place] [address] 04/20/2024 Oliver Keita III, MD [address] [place] [address] [place] [address] 05/22/2024 Oliver Keita Hyperlipidemia, unspecified E78.5 ; Weight loss R63.4 and Hypothyroidism, unspecified E03.9 Oliver Keita III, MD [address] [place] [address] [place] [address] 06/28/2024 Oliver Keita III, MD [address] [place] [address] [place] [address] 08/23/2024 Oliver Keita Assessments Encounter Date Diagnosis (ICD Code) Assessment Notes T reatment Notes Treatment Clinical Notes 10/06/2023 Former smoker (ICD-1 0 - Z87.891) She is highly motivated not to smoke and has a plan for maintenance of abstinence. 10/06/2023 Malignant neoplasm o f sigmoid colon (ICD-10 [...] colon cancer. 10/14/2023 Athscl heart disease of [place] coronary artery w/o ang pctrs (ICD-10 - I25.10) She denies any recent exertional chest pain or angina. She has had no palpitations or syncope. Her cardiac disease has been in remission. She will be followed closely. She denies dyspnea. 12/15/2023 Weight loss (ICD-10 - R63.4) She has gained back 3 pounds. Her weight will be observed. 12/15/2023 Malignant neoplasm o f sigmoid colon (ICD-10 [...] with me on the neurologist regularly. 08/27/2024 Parkinsons disease (ICD-10 - G20) Her [...] pounds. Upper GI series has been ordered. 10/06/2023 Overweight (ICD-10 - E66.3) She has [...] and possible side effects. 03/30/2024 Malignant neoplasm o f sigmoid colon (ICD-10 - C18.7) There is no sign of recurrent colon cancer at this time. Surveillance will continue with periodic colonoscopy. 06/11/2024 Hyperlipidemia, unspecified (ICD-10 - E78.5) Her lipids have been stable. A fasting lipid profile is pending. 08/27/2024 Gastroesophageal reflux disease with esophagitis without hemorrhage (ICD-10 - K21.00) His symptoms of occasional substernal burning pain suggests reflux esophagitis. Upper GI series has been ordered. She will take omeprazole. A close follow-up visit was arranged. 05/22/2024 Hyperlipidemia, unspecified (ICD-10 - E78.5) 10/06/2023 [...] that she is using ibuprofen. 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 [...] change in her medications was made. 08/27/2024 Malignant neoplasm o f sigmoid colon (ICD-10 - C18.7) There is no sign of recurrent colon cancer at this time. Surveillance will continue with periodic colonoscopy. 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 She is short of breath only with sustained exertion. 06/11/2024 Malignant neoplasm o f sigmoid colon (ICD-10 - C18.7) There is no sign of recurrent colon cancer at this time. Surveillance will continue with periodic colonoscopy. 08/27/2024 Former smoker (ICD-1 0 - Z87.891) She is highly motivated not to smoke and has a plan for maintenance of abstinence. 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 She is short of breath only with sustained exertion. 08/27/2024 Spinal stenosis of lumbar region without neurogenic claudication (ICD-10 - M48.06) Her back pain is stable. No change in her regimen as needed. 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 [...] which is now improving. 03/30/2024 Former smoker (ICD-1 0 - Z87.891) She [...] No change in her medications was made. 10/06/2023 Athscl heart disease of [place] coronary artery w/o ang pctrs (ICD-10 - I25.10) No additional chest pain. Compliannt with her medication. Her cardiac examination today was unremarkable. 10/14/2023 Spinal stenosis of lumbar region without neurogenic claudication (ICD-10 - M48.06) Her back pain is stable. No change in her regimen as needed. Her pain was improved with the injection yesterday 12/15/2023 Former smoker (ICD-1 0 - Z87.891) She is highly motivated not to smoke and has a plan for maintenance of abstinence. 03/30/2024 Osteoarthritis (ICD- 10 - M19.90) She has mild arthritis in the knees, shoulders and hands. No change in her regimen as needed today. She is able to conduct all of the activities of daily living without impairment. 06/11/2024 Former smoker (ICD-1 0 - Z87.891) She is highly motivated not to smoke and has a plan for maintenance of abstinence. 08/27/2024 Other fracture of T11-T12 vertebra, initial encounter for closed fracture (ICD-10 - S22.088A) Her pain is much improved she is ambulatory without difficulty and feels well. Current pain is in the hip where she had the injection, which is now improving. 10/06/2023 Parkinsons disease (ICD-10 - G20) She has been placed on carbidopa/levodopa by the neurologist and says her tremor is improving. Her main complaint today is balancing. 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 She is short of breath only with sustained exertion. 10/14/2023 Other fracture of T11-T12 vertebra, initial [...] been ordered. She will continue on aspirin. 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 She has had no palpitations or syncope. Her cardiac disease has been in remission. She will be followed closely. She denies dyspnea. 10/14/2023 Malignant neoplasm o f sigmoid colon (ICD-10 - C18.7) There is no sign of recurrent colon cancer at this time. Surveillance will continue with periodic colonoscopy. 12/15/2023 Essential hypertensi on (ICD-10 - I10) Her blood pressure has [...] with me on the neurologist regularly. 08/27/2024 Hypothyroidism, unspecified (ICD-10 - E03.9) She is clinically euthyroid. No change in her medication was necessary. Comprehensive blood work with thyroid function test was ordered today. 10/14/2023 Bipolar 1 disorder with moderate milady (ICD-10 - F31.12) She has begun a new medication and was referred back to mental health for her depression and possible side effects. 03/30/2024 Essential hypertensi on (ICD-10 - I10) Her blood pressure has been controlled at 117/61. I have recommended aggressive weight loss and sodium restriction. 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 She is short of breath only with sustained exertion. Plan Of Treatment Pending Test Test Name Order Date PROFILE, FASTING (COMPREHENSIVE METABOLI C) 05/22/2024 PROFILE, FASTING (COMPREHENSIVE METABOLI C) 03/30/2024 PROFILE, [...] C) 08/25/2020 PROFILE, FASTING (COMPREHENSIVE METABOLI C) 03/10/2022 PROFILE, FASTING (COMPREHENSIVE METABOLI C) 06/30/2020 PROFILE, FASTING (COMPREHENSIVE METABOLI C) 12/09/2022 PROFILE, FASTING (COMPREHENSIVE METABOLI C) 09/18/2019 PROFILE, RANDOM (COMPREHENSIVE METABOLIC ) 04/28/2020 PROFILE, RANDOM (COMPREHENSIVE METABOLIC ) 06/24/2020 CALCIUM 06/24/2020 LIPID PANEL 06/30/2020 LIPID PANEL 06/24/2020 LIPID PANEL 12/09/2022 LIPID PANEL 09/18/2019 LIPID PANEL 04/28/2020 LIPID PANEL 04/09/2021 LIPID PANEL 01/31/2018 LIPID PANEL 11/27/2020 LIPID PANEL 06/24/2022 LIPID PANEL 05/18/2019 LIPID PANEL 10/07/2017 LIPID PANEL 04/13/2023 LIPID PANEL 01/17/2020 LIPID PANEL 01/15/2019 LIPID PANEL 08/11/2018 LIPID PANEL 08/25/2020 LIPID PANEL 03/10/2022 CHOLESTEROL 11/16/2021 FREE T4 (FT4) 06/30/2020 TSH (THYROID STIMULATING HORMONE) 2023 TSH (THYROID STIMULATING HORMONE) 2017 TSH (THYROID STIMULATING HORMONE) 2019 TSH (THYROID STIMULATING HORMONE) 2019 TSH (THYROID STIMULATING HORMONE) 2023 CEA 10/07/2017 CBC w DIFF 01/15/2019 CBC w DIFF 08/25/2020 CBC w DIFF 03/10/2022 CBC w DIFF 12/09/2022 CBC w DIFF 08/11/2018 CBC w DIFF 09/18/2019 CBC w DIFF 06/24/2020 CBC w DIFF 04/28/2020 CBC w DIFF 04/09/2021 CBC w DIFF 01/31/2018 CBC w DIFF 06/30/2020 CBC w DIFF 11/16/2021 CBC w DIFF 11/27/2020 CBC w DIFF 06/24/2022 CBC w DIFF 05/18/2019 CBC w DIFF 06/18/2021 CBC w DIFF 04/13/2023 CBC w DIFF 01/17/2020 CBC w DIFF 06/11/2024 CBC w DIFF 10/07/2017 BONE DENSITY DEXA 04/22/2023 MAMMOGRAM DIGITAL BILATERAL SCREEN 04/06 MAMMOGRAM DIGITAL BILATERAL SCREEN 11/27 Echocardiogram 01/27/2017 VITAMIN D 25-OH TOTAL 01/15/2019 VITAMIN D 25-OH TOTAL 08/11/2018 VITAMIN D 25-OH TOTAL 06/24/2020 VITAMIN D 25-OH TOTAL 04/28/2020 CBC WITH AUTO DIFF 03/30/2024 CBC WITH AUTO DIFF 05/22/2024 Lipid Panel 06/18/2021 Lipid Panel 06/11/2024 Lipid Panel 03/30/2024 Lipid Panel 05/22/2024 Free T4 (Free Thyroxine) 06/11/2024 Free T4 (Free Thyroxine) 05/22/2024 Next Appt Details Provider Name:Oliver Keita, 09/19/2024 10:30:00 AM, [address] [place] [address] [address], [place], [phone], Provider Name:Oliver Keita, 12/17/2024 10:00:00 AM, [address] [place] [address] [address], [place], [phone], Insurance Providers Payer Name Payer Address Payer Phone Subscriber Number Group Number Insured Name Patient Relationship to Insured Coverage Start Date Coverage End Date MEDICARE NGS [address] THADDEUS GUTIERREZ [phone] [id number] Julienne Martin i Self - patient [facility] the [facility] [address] [place] [id number] Julienne Martin i Self - patient is the insured Medical (General) History Medical History History ICD Code nonischemic cardiomyopathy EF 30-35% osteoarthritis hyperlipidemia 2002 colon cancer State II [id number] bipolar disorder unrinary incontinence shingles 2010 LBBB mammograms due in November chronic back pain/spinal stenosis macular degeneration Xavi Zhang gmeadow Essential hypertension TIA [facility] July 2023 Parkinsons diswase July 2023 dry macular degeneration legal blindness Back surgery Surgical History Surgery Date(Month/Year) right ilieocolectomy 2002 colonoscopy 12/2010 colonoscopy 11/2008 right knee replacement cardiac catheterization, normal 06/2014 lumbar decompression 2014 left knee replacement Back surgery Hospitalization History Reason Date(Month/Year) TIA 07/2022 [facility] 07/2022
[2024-10-01 11:40] VITALS: BMI 25.6
--- NOTE | 2024-10-03 12:01 | MHC.SHP ---
Pre-Procedural Eval Section A - 24 Hr Update-Section A only Date of Service: 10/03/24 The patient is an INPATIENT: No Changes since office visit: No Cold of Flu in the past 2 weeks, No New Medical Problems, No Changes in Medication and No Patient answered all questions The patient has been examined within 24 hours of the surgical procedure. The History & Physical has been completed within 30 days and I have reviewed it.: Yes Section B - Complete if H&P > 30 days Chief Complaint: Abnormal findings on diagnostic imaging of other Allergies: Allergies Allergy/AdvReac Type Severity Reaction Status Date / Time morphine Allergy Unknown Verified 10/01/24 11:26 Plan I have reviewed the history and physical and performed a pertinent physical examination on my patient. No changes have occurred unless specified. Time Spent With Patient Time: Total time managing care of this patient today ____ minutes.
[2024-10-03 12:57] VITALS: BP 137/62; PULSE 72; RESP 16; TEMP 36.7; O2SAT 96
--- NOTE | 2024-10-03 13:22 | P.CONAN_ITS ---
HPI - Anesthesia Eval Consult details Narrative: for EGD. [facility] Past Medical History Medical History Spinal stenosis Colon cancer Thyroid disease Bipolar 1 disorder Macular degeneration Parkinson disease Dilated cardiomyopathy Dyslipidemia Left bundle branch block SOB (shortness of breath) HTN (hypertension) Family History Family history of problems with anesthesia: No Surgical History Surgical History (Updated 10/01/24 @ 13:02 by Judi You RN) History of back surgery History of bilateral knee replacement Hx of colectomy History of Problems with Anesthesia: No Social History Social History Are you a primary health care administrator to a significant other at home: No Do you presently have visiting nurse or other home services: No Patient Tobacco Use Status: Never used Tobacco Use of substances other than those prescribed or required for medical reasons: No Have you been hit, kicked, punched, or otherwise hurt by someone within the past year? If so, by whom?: No Advance Directives: No Advance Directives Information Provided: Yes Recently lost weight without trying: No Meds Allergies Allergy/AdvReac Type Severity Reaction Status Date / Time morphine Allergy Unknown Verified 10/01/24 11:26 Home Medications ?Medication ?Instructions ?Recorded ?Confirmed ?Last Taken ?Type amoxicillin 500 mg capsule 2,000 mg PO DAILY 10/01/24 10/01/24 Unknown History aripiprazole 2 mg tablet 2 mg PO BEDTIME 10/01/24 10/01/24 Unknown History aspirin 81 mg tablet,delayed 81 mg PO DAILY 10/01/24 10/01/24 Unknown History release atorvastatin 20 mg tablet 20 mg PO DAILY 10/01/24 10/01/24 Unknown History biotin 10,000 mcg chewable tablet 10,000 mcg PO DAILY 10/01/24 10/01/24 Unknown History brimonidine 0.2 % eye drops 1 drp ophthalmic (eye) BID 10/01/24 10/01/24 Unknown History bupropion HCl 300 mg 24 hr tablet, 300 mg PO QAM 10/01/24 10/01/24 Unknown History extended release carbidopa ER 25 mg-levodopa 100 mg 1 tab PO TID 10/01/24 10/01/24 Unknown History tablet,extended release carvedilol 6.25 mg tablet 6.25 mg PO BID 10/01/24 10/01/24 Unknown History escitalopram oxalate 10 mg tablet 10 mg PO QAM 10/01/24 10/01/24 Unknown History lithium carbonate 300 mg 300 mg PO 4XW 10/01/24 10/01/24 Unknown History tablet,extended release lorazepam 0.5 mg tablet 0.5 mg PO DAILY PRN anxiety 10/01/24 10/01/24 Unknown History olmesartan 5 mg tablet 10 mg PO DAILY 10/01/24 10/01/24 Unknown History omeprazole 20 mg capsule,delayed 20 mg PO DAILY PRN Acid Reflux 10/01/24 10/01/24 Unknown History release oxybutynin chloride 5 mg tablet 2.5 mg PO DAILY PRN Spasms 10/01/24 10/01/24 Unknown History quetiapine 25 mg tablet 25 mg PO BEDTIME 10/01/24 10/01/24 Unknown History rotigotine 1 mg/24 hour 1 patch topical DAILY 10/01/24 10/01/24 Unknown History transdermal 24 hour patch (Neupro) Exam Height,Weight and Vital Signs: Height 5 ft Weight 59.421 kg Last Vital Signs Temp 98.0 F 10/03/24 12:57 Pulse 72 10/03/24 12:57 Resp 16 10/03/24 12:57 BP 137/62 10/03/24 12:57 Pulse Ox 96 10/03/24 12:57 O2 Del Method Room Air 10/03/24 12:57 Airway Mallampati Class: I TM Dist: >3cm Neck ROM: Full Loose/Missing/Broken Teeth: No Heart: h/o dilated nonisch CMOP. EF has since normalized per cardiol note. Lungs: ok Assessment and Plan Assessment Anesthesia Assessment: Anesthesia Plan Discussed and Chart Reviewed Final Anesthetic Review Family History of Problems with Anesthesia: No History of Problems with Anesthesia: No NPO: Yes ASA Class: IV Final Preanesthetic Review: No Changes in Pt Med Stat, Meds/Allgs Chart Reviewed, Consent Obtained/Reviewed and Anes Risks/Benef Reviewed Patient Risk: High Procedure Risk: Intermediate Anesthetic Plan Anesthetic Plan: Agree w/ Assess. and Plan and TIVA Disposition: Standard PACU
--- OUTSIDE RECORDS SUMMARY | 2024-10-03 13:38 | XMS_ITS | Continuity of Care Document ---
Author Organization [facility] Address [address] [facility], [address] d Floor, [address] [place] [address]- Support Name Relationship Address Phone PODGURSRENE, MEGHANA [...] Unknown Un available Care Team Providers Care City Distribution Clerk Name Role Phone Neela RIBERA, Oliver Cabrera Primary Care Physician Encounter [facility] Date(s): 08/20/24 - 09/19/24 [facility] [address] [facility] 3rd Floor, [address] [place] [address]- Encounter Type: Triage Allergies, Adverse Reactions, Alerts [...] 3:23:30 PM EST, Route to Pharmacy Electronically, [facility] 3 Start Date: 09/22/17 Stop Date: [...] Refills, Maintenance, 12/16/23 11:31:00 AM EDT, Solution, [facility]/pharmacy #[id number], Partial fill upon patient request if [...] PM EST, 10/17/25 3:36:00 PM EST, Tablet, [facility]/pharmacy#[id number], Partial fill upon patient request if the [...] 3Refills, Maintenance, 10/12/26 3:36:00 PM EST, Tablet, [facility]/pharmacy #[id number], Partial fill upon patientrequest if the [...] 10:50:00 AM EDT, Route to Pharmacy Electronically, [facility]/pharmacy #[id number], Partial fill upon patient request if [...] 10:50:00 AM EDT, Route to Pharmacy Electronically, [facility]/pharmacy #[id number], Partial fill upon patient request if [...] 10:50:00 AM EDT, Route to Pharmacy Electronically, [facility]/pharmacy #[id number], Partial fill upon patient request if [...] Refills, Maintenance, 04/22/23 10:15:00 AM EDT, Tablet, [facility]/pharmacy #[id number], Partial fill upon patient request if [...] 2:04:00 PM EDT, Route to Pharmacy Electronically, [facility]/pharmacy #[id number], Partial fill upon patient request if [...] Refills, Maintenance, 09/11/24 9:22:00 AM EST, Patch, [facility]/pharmacy #[id number], Partial fill upon patient request if [...] Team Personnel Name: Catalina Manzanares RN Position: [facility] RN Member Role: Primary Care Nurse Name: Oliver Keita MD Position: [facility] Physician - Oncology Member Role: PCP Address: [address] [place] [address] [address] [facility] Ke[facility] III, [place] [address] Telecom: Name: Marsha Mason RN Position: [facility] RN Member Role: Primary Care Nurse Name: Diana Kaplan RN Position: [facility] RN Member Role: Primary Care Nurse Name: Nelida Menjivar RN Position: [facility] RN Member Role: Primary Care Nurse Name: Savanna Paredes Position: [facility] Outreach Member Role: Lifetime Consulting Physician Care Team Related Persons Name: RUSTAM BURGOS Insurance Providers Guarantor name: MEGHANA MARIA DEL ROSARIORENE Health Plan Information #: 1 Payer: MEDICARE PART B OUTPT Member Number: NA Policy Number: NA Group Number: NA Health Plan Information #: 2 Payer: [facility] Member Number: NA Policy Number: NA Group Number: NA
--- OUTSIDE RECORDS SUMMARY | 2024-10-03 13:38 | XMS_ITS | Encounter Summary ---
Author Organization [facility] Address [address] [place] [address] Care Team Providers Care Oral And Maxillofacial Surgeon Name Role Phone Oliver Keita MD Primary Care Provider [phone] Encounter Details Date Type Department Care Team (Late st Contact Info) Description 01/07/2021 Telephone [facility] [address] [facility] [address] [place] [address] Tami Chen [place] [address] [phone] Social History Tobacco Use Types Packs/Day Years Used Date Smoking Tobacco: Former Smokeless Tobacco: Never Sex and Gender Information Value Date Recorded Sex Assigned at Not on file Gender Identity Not on file Sexual Orientation Not on file documented as of this encounter Miscellaneous Notes * Telephone Encounter - Tami Chen MA - 01/07/2021 2:20 PM EDT RE: Thoracic Facet Joint Injection on 01/19/[address] Casillas Pre-procedure meds cleared (response attached). Patient notified. documented in this encounter Plan of Treatment Not on file documented as of this encounter Visit Diagnoses Not on filedocumented in this encounter Care Teams Oral And Maxillofacial Surgeon Relationship Specialty Start Date End Date Oliver Keita MD [address] [facility] [address] [place] [address] PCP - General 04/24/20 documented as of this encounter
--- OUTSIDE RECORDS SUMMARY | 2024-10-03 13:38 | XMS_ITS | Continuity of Care Document ---
Author Organization [facility] Address [address] [facility], 3r d Floor, [address] [place] [address]- Support Name Relationship Address Phone PODGURSRENE, MEGHANA [...] Unknown Un available Care Team Providers Care Patrol Inspector Name Role Phone Neela RIBERA, Oliver Cabrera Primary Care Physician [place] [facility] [place]/22[place]24 - 09/19/24 [facility] [address] [facility] 3rd Floor, [address] [place] [address]- Attending Physician: Not on Staff, Attending MD Encounter Type: Pre-OutPatient One Time Allergies, Adverse Reactions, Alerts Substance Criticality Severity [...] 3:23:30 PM EST, Route to Pharmacy Electronically, [facility] 3 Start Date: 09/22/17 Stop Date: 10/22/17 [...] Refills, Maintenance, 12/16/23 11:31:00 AM EDT, Solution, [facility]/pharmacy #[id number], Partial fill upon patient request [...] PM EST, 10/17/25 3:36:00 PM EST, Tablet, [facility]/pharmacy#[id number], Partial fill upon patient request if [...] 3Refills, Maintenance, 10/12/26 3:36:00 PM EST, Tablet, [facility]/pharmacy #[id number], Partial fill upon patientrequest if [...] 10:50:00 AM EDT, Route to Pharmacy Electronically, [facility]/pharmacy #[id number], Partial fill upon patient request [...] 10:50:00 AM EDT, Route to Pharmacy Electronically, [facility]/pharmacy #[id number], Partial fill upon patient request [...] 10:50:00 AM EDT, Route to Pharmacy Electronically, [facility]/pharmacy #[id number], Partial fill upon patient request [...] Refills, Maintenance, 04/22/23 10:15:00 AM EDT, Tablet, [facility]/pharmacy #[id number], Partial fill upon patient request [...] 2:04:00 PM EDT, Route to Pharmacy Electronically, [facility]/pharmacy #[id number], Partial fill upon patient request [...] Refills, Maintenance, 09/11/24 9:22:00 AM EST, Patch, [facility]/pharmacy #[id number], Partial fill upon patient request [...] Team Personnel Name: Catalina Manzanares RN Position: [facility] RN Member Role: Primary Care Nurse Name: Oliver Keita MD Position: [facility] Physician - Oncology Member Role: PCP Address: [address] [place] [address] #[facility] Oliver Keita III, MD [address] Telecom: Name: Marsha Mason RN Position: [facility] RN Member Role: Primary Care Nurse Name: Diana Kaplan RN Position: [facility] RN Member Role: Primary Care Nurse Name: Nelida Menjivar RN Position: [facility] RN Member Role: Primary Care Nurse Name: Savanna Paredes Position: [facility] Outreach Member Role: Lifetime Consulting Physician Care Team Related Persons Name: RUSTAM BURGOS Insurance Providers Guarantor name: MEGHANA LORETTA Health Plan Information #: 1 Payer: MEDICARE PART B OUTPT Member Number: [id number] Policy Number: NA Group Number: NA Health Plan Information #: 2 Payer: [facility] Member Number: [id number] Policy Number: NA Group Number: [id number]
--- OUTSIDE RECORDS SUMMARY | 2024-10-03 13:38 | XMS_ITS | Continuity of Care Document ---
Author Organization [facility] Address [address] [facility], 3r d Floor, [address] [place] [address]- Support Name Relationship Address Phone PODGURSRENE, MEGHANA [...] Unknown Un available Care Team Providers Care Model Maker Plastic Name Role Phone Neela RIBERA, Oliver Cabrera Primary Care Physician [phone] Encounter [facility] Date(s): 08/20/24 - 09/19/24 [facility] [address] [place] [address] 3rd Floor, [address] [place] [id number] Attending Physician: Eduin Islas Admitting Physician: Eduin [...] 3:23:30 PM EST, Route to Pharmacy Electronically, [facility] 3 Start Date: 09/22/17 Stop Date: 10/22/17 [...] Refills, Maintenance, 12/16/23 11:31:00 AM EDT, Solution, [facility]/pharmacy #[id number], Partial fill upon patient request [...] PM EST, 10/17/25 3:36:00 PM EST, Tablet, [facility]/pharmacy#0517, Partial fill upon patient request if [...] 3Refills, Maintenance, 10/12/26 3:36:00 PM EST, Tablet, [facility]/pharmacy #[id number], Partial fill upon patientrequest if [...] 10:50:00 AM EDT, Route to Pharmacy Electronically, [facility]/pharmacy #[id number], Partial fill upon patient request [...] 10:50:00 AM EDT, Route to Pharmacy Electronically, [facility]/pharmacy #[id number], Partial fill upon patient request [...] 10:50:00 AM EDT, Route to Pharmacy Electronically, [facility]/pharmacy #[id number], Partial fill upon patient request [...] bedtime, # 15 tablet, 3 Refills, Maintenance, 8/11/23 10:15:00 AM EDT, Tablet, [facility]/pharmacy #[id number], Partial fill upon patient request [...] 2:04:00 PM EDT, Route to Pharmacy Electronically, [facility]/pharmacy #[id number], Partial fill upon patient request [...] Refills, Maintenance, 09/11/24 9:22:00 AM EST, Patch, [facility]/pharmacy #[id number], Partial fill upon patient request [...] Team Personnel Name: Catalina Manzanares RN Position: [facility] RN Member Role: Primary Care Nurse Name: Oliver Keita MD Position: [facility] Physician - Oncology Member Role: PCP Address: [address] [place] [address] #[facility] Oliver Keita III, MD [place] [id number] Telecom: Name: Marsha Mason RN Position: [facility] RN Member Role: Primary Care Nurse Name: Diana Kaplan RN Position: [facility] RN Member Role: Primary Care Nurse Name: Nelida Menjivar RN Position: [facility] RN Member Role: Primary Care Nurse Name: Savanna Paredes Position: [facility] Outreach Member Role: Lifetime Consulting Physician Care Team Related Persons Name: RUSTAM BURGOS Insurance Providers Guarantor name: MEGHANA LORETTA Health Plan Information #: 1 Payer: MEDICARE PART B OUTPT Member Number: NA Policy Number: NA Group Number: NA Health Plan Information #: 2 Payer: [facility] Member Number: NA Policy Number: NA Group Number: NA
--- OUTSIDE RECORDS SUMMARY | 2024-10-03 13:38 | XMS_ITS | Encounter Summary ---
Author Organization [facility] Address [address] [place] [address] Care Team Providers Care Falafel Cart Cook Name Role Phone Oliver Keita MD Primary Care Provider [phone] Encounter Details Date Type Department Care Team (Late st Contact Info) Description 06/01/2023 Telephone [facility] [address] [place] [phone] Jermaine Sánchez [address] [facility] [place] [address] [place] [phone] Social History Tobacco Use Types Packs/Day Years Used Date Smoking Tobacco: Former Smokeless Tobacco: Never Sex and Gender Information Value Date Recorded Sex Assigned at Not on file Gender Identity Not on file Sexual Orientation Not on file documented as of this encounter Miscellaneous Notes * Telephone Encounter - Vi Orozco LPN - 06/07/2023 12:35 PM EDT Called Pt no answer Detailed message left advising will have scheduling department call to RS appointment to in person appointment. Please call to arrange * Telephone Encounter - Jermaine Sánchez - 06/01/2023 1:55 PM EDT Pt unable to attend Telemedicine appt due to lack of equipment. Pt does not want to travel for in-office appt. Please advise, thank you! documented in this encounter Plan of Treatment Not on file documented as of this encounter Visit Diagnoses Not on filedocumented in this encounter Care Teams Falafel Cart Cook Relationship Specialty Start Date End Date Oliver Keita MD [address] [address] PCP - General 04/24/20 documented as of this encounter
--- OUTSIDE RECORDS SUMMARY | 2024-10-03 13:38 | XMS_ITS ---
Author Organization [facility] Address [address] [place] [phone] Care Team Providers Care Business Center Representative Name Role Phone Oliver Keita MD Primary Care Provider Unavailab Papito Mina Jr REASON FOR VISIT abn UGI series Encounters Encounter Location Date Provider Diagnosis [facility] Outpatient [address] [place], [place] [id number] 10/03/2024 Papito Garcia Jr PLAN OF TREATMENT No Information
--- OUTSIDE RECORDS SUMMARY | 2024-10-03 13:38 | XMS_ITS | Clinical Summary ---
Author Organization [facility] Address [address] [place] [address] Care Team Providers Care Tacker Off Name Role Phone Oliver Keita MD Primary Care Provider [phone] Allergies Active Allergy Reactions Criticality Noted Date Comments Morphine Shortness Of Breath High 05/29/2020 Other reaction(s): Unknown Morphine And Codeine Unknown/Patient and Family Unable to Define Medium 05/19/2015 Medications Medication Sig Dispensed Refills Start Date End Date Status carvedilol (COREG) 6.25 MG tablet Take 6.25 mg by mouth 2 (two) times a day. 2020 Active hydrALAZINE (APRESOLINE) 25 MG tablet 05/07/2020 Active losartan (COZAAR) 25 MG tablet losartan 25 mg tablet Active ARIPiprazole (ABILIFY) 2 MG tablet 08/28/2020 Act sara [facility] Stool Softener 100 MG capsule Take 100 mg by mouth daily as needed. 08/18/2020 Active brimonidine (ALPHAGAN) 0.2 % ophthalmic solution 01/09/2021 Activ e OMEprazole (PriLOSEC) 20 MG capsule omeprazole 20 mg capsule,delayed release Active bisacodyl 5 MG EC tablet 05/30/2021 Active [facility] Melatonin 10 MG capsule TAKE 1 CAPSULE BY MOUTH EVERYDAY AT BEDTIME 03/27/2021 Active DULoxetine (CYMBALTA) 60 MG capsule 09/01/2021 Active meclizine (ANTIVERT) 25 MG tablet 09/10/2021 Active buPROPion (WELLBUTRIN XL) 300 MG 24 hr tablet 1 tablet in the morning Active DULoxetine (CYMBALTA) 30 MG capsule 03/01/2022 Active hydrALAZINE (APRESOLINE) 50 MG tablet 1 tablet Active lamoTRIgine (LaMICtal) 50 MG Tablet Dispersible 1 tablet Active lisinopril (PRINIVIL,ZeSTRIL) 2.5 MG tablet Take 1 tablet by mouth daily. Active lithium carbonate (LITHOBID) 300 MG 12 hr CR tablet 03/01/2022 Active melatonin 10 MG Tab tablet Active Multiple Vitamins-Minerals (PreserVision AREDS) Tab Active olmesartan (BENICAR) 5 MG tablet 1 tablet Active traZODone (DESYREL) 50 MG tablet Take 0.5-1 tablets by mouth nightly. Active Triamcinolone Acetonide 0.025 % Lotion APPLY TO SCALP TWICE A DAY NEEDED 02/17/2022 Active atorvastatin (LIPITOR) 20 MG tablet 1 tablet Active amoxicillin (AMOXIL) 500 MG capsule TAKE 4 CAPSULES BY MOUTH 1 HOUR PRIOR TO APPT 07/28/2022 Active buPROPion (WELLBUTRIN XL) 150 MG 24 hr tablet TAKE 1 TABLET BY MOUTH EVERY MORNING TAKE WITH THE 300 MG TABLET. 08/06/2022 Active carbidopa-levodopa (SINEMET) 25-100 MG per tablet 08/12/2022 Active HYDROcodone-acetamino phen (NORCO) 5-325 mg per tablet Take 1 tablet by mouth 4 times daily (every 6 hours) as needed. 06/29/2022 Active LORazepam (ATIVAN) 0.5 MG tablet TAKE 1 TABLET BY MOUTH EVERY DAY NEEDED FOR ANXIETY 08/06/2022 Active pqchtlar-jxgnkgrvn-bk xamethasone (MAXITROL) 0.1 % Ointment neomycin 3.5 mg/g-polymyxin B 10,000 unit/g-dexameth 0.1 % eye oint APPLY DIRECTED TO BOTH EYES DAILY AT BEDTIME Active polyethylene glycol (miraLAx) 17 GM/SCOOP powder Take 17 g by mouth. 08/12/2022 Activ e carbidopa-levodopa (SINEMET) 10-100 MG per tablet 1 tablet Active carbidopa-levodopa (SINEMET) 25-100 MG per tablet Take 1 tablet by mouth. 12/21/2022 Active oxybutynin (DITROPAN) 5 mg tablet Take 2.5 mg by mouth. 02/01/2023 Active QUEtiapine (SEROquel) 25 MG tablet Take 25 mg by mouth. 05/17/2023 Active carbidopa-levodopa (SINEMET) 25-100 MG per tablet Take 2 tablets by mouth. 02/01/2023 Active escitalopram (LEXAPRO) 10 MG tablet Take 10 mg by mouth every morning. 11/24/2023 Active Active Problems Problem Noted Date Diagnosed Date Opioid use, unspecified, uncomplicated 3 Other chronic pain 07/02/2021 Lumbar radiculopathy 02/16/2021 Spinal stenosis of lumbar region 02/16/2021 Lumbar facet joint syndrome 06/05/2020 Chronic low back pain 06/05/2020 Thoracic facet joint syndrome 06/05/2020 Sacroiliitis 05/29/2020 Social History Tobacco Use Types Packs/Day Years Used Date Smoking Tobacco: Former Smokeless Tobacco: Never Tobacco Cessation:Counseling Given: Not Answered Sex and Gender Information Value Date Recorded Sex Assigned at Not on file Gender Identity Not on file Sexual Orientation Not on file Last Filed Vital Signs Vital Sign Reading Time Taken Comments Blood Pressure 113/74 04/21/2023 10:39 AM EDT Pulse 61 04/21/2023 10:39 AM EDT Temperature 36.6 ??C (97.8 ??F) 04/21/2023 9:38 AM ED T Respiratory Rate 17 04/21/2023 10:39 AM EDT Oxygen Saturation 97% 04/21/2023 10:39 AM EDT Inhaled Oxygen Concentration - - Weight 70.3 kg (155 lb) 03/24/2022 9:13 AM EDT Height 152.4 cm (5') 03/24/2022 9:13 AM EDT Body Mass Index 30.27 03/24/2022 9:13 AM EDT Plan of Treatment Health Maintenance Due Date Last Done Comments DTaP/Tdap/Td Vaccines (1 - Tdap) 1962 Pneumococcal Vaccines 50+ (1 of 1 - PCV) 1993 Zoster (Shingles) Vaccine (1 of 2) 1993 DXA Bone Density (Females,Ag es 65 and older) 2008 RSV Vaccine 60 years and old er and Patients (1 - 1-dose 75+ series) 2018 Influenza Vaccine 04/12/2024 06/28/2014 COVID-19 Vaccine (2 - 2023-2 5 season) 2024 07/14/2021 Hepatitis B Vaccines Aged Out No long er eligible based on patient's age to complete this topic Care Teams Tacker Off Relationship Specialty Start Date End Date Oliver Keita MD [address] [address] [place] [address] PCP - General 04/24/20
--- OUTSIDE RECORDS SUMMARY | 2024-10-03 13:39 | XMS_ITS | Patient Health Record ---
Author Organization [facility] Address [address] [place] [address] Care Team Providers Care Final Assembler Name Role Phone Oliver Keita MD Primary Care Provider UnavailPapito Lima Jr Unavailable ALLERGIES Allergen (clinical drug ingredient) Drug/Non Drug Allergy documented on EMR Reaction Allergy Type Onset Date Status morphine Morphine Unknown Drug Allergy Active REASON FOR REFERRAL No Information MEDICATIONS Medication SIG (Take, Route, Frequency, Duration) Notes Start Date End Date Status Neupro 1 MG/24HR Transdermal for 30 Active Docusate Sodium 100 MG TAKE 1 CAPSULE BY MOUTH TWICE A DAY TAKE WITH PLENTY OF WATER Oral for 90 Active [facility] Stool Softener 100 MG TAKE 1 CAPSULE BY MOUTH 2 TIMES A DAY X 90 DAYS, TAKE WITH PLENTY OF WATER Oral for 90 Active Brimonidine Tartrate 0.2 % Ophthalmic for 18 Active Gabapentin 100 MG PLEASE SEE ATTACHED FOR DETAILED DIRECTIONS Oral for 30 Active ARIPiprazole 2 MG Oral for 90 Active LORazepam 0.5 MG TAKE 1 TABLET BY LINDA TH EVERY DAY NEEDED FOR ANXIETY Oral for 90 Active Carvedilol 6.25 MG Oral for 90 Active Carbidopa-Levodopa ER 25-100 MG TAKE 1 TABLET BY MOUTH 3 TIMES A DAY BEFORE MEALS Oral for 90 Active [place] Carbonate ER 300 MG Oral for 84 Active Olmesartan Medoxomil 20 MG TAKE 1/2 TABL ET BY MOUTH DAILY Oral for 90 Active Aspirin 81 81 MG 1 tablet Orally Once a day for 30 day(s) Active Atorvastatin Calcium 20 MG Oral for 90 Active Escitalopram Oxalate 10 MG Oral for 90 Active buPROPion HCl ER (XL) 300 MG Oral for 90 Active IMMUNIZATIONS Vaccine Route Administration Date Status Comme nts Influenza Unknown 06/05/2024 Administered SOCIAL HISTORY Tobacco Use: Social History Observation Description Date Details (start date - stop date) Never Smoker NA - NA Sex Assigned At : Social History Observation Description Sex Assigned At Unknown Tobacco Use/Smoking Question Answer Notes Patient is a nonsmoker PROBLEMS Problem Type ICD Code Onset Dates Problem Status W/U Status Risk SNOMED Code Notes Problem Abnormal UGI series (R93.3) Active confirmed 241576969 Problem Long-term use of aspirin therapy (Z79.82) Active confirmed 117201115 VITAL SIGNS Temperature 97.1 degrees Fahrenheit 09/17/2024 Blood pressure diastolic 00 mm Hg 09/17/2024 Height 5 ft 0 in in 09/17/2024 Blood pressure systolic 000 mm Hg 09/17/2024 Weight 134 lbs 09/17/2024 BMI 26.17 kg/m2 09/17/2024 Encounters Encounter Location Date Provider Diagnosis [facility] Out[facility] [address] [place] [phone] 10/03/2024 Papito Garcia Jr [facility] [address] [place] [phone] 09/17/2024 Papito Garcia Jr Abnormal UGI series R93.3 and Long-term use of aspirin therapy Z79.82 [facility] [address] [place] [phone] 09/11/2024 Papito Garcia Jr [facility] [address] [place] [phone] 10/01/2024 Papito Garcia Jr ASSESSMENTS Encounter Date Diagnosis Assessment Notes Treatment Notes Treatment Clinical Notes 09/17/2024 Long-term use of aspirin therapy (ICD-10 - Z79.82) 09/17/2024 Abnormal UGI series (ICD-10 - R93.3) Digestive diseases material was printed PLAN OF TREATMENT Future Test Test Name Order Date UPPER GI ENDOSCOPY 09/17/2024 Insurance Providers Payer Name Payer Address Payer Phone Subscriber Number Group Number Insured Name Patient Relationship to Insured Coverage Start Date Coverage End Date MEDICARE OF SERENA MORENITA BLANTON [address] [id number] MEGHANA YEAGER Self - patient is the insured [employer] ([facility] [address] [place] [id number] [phone] [id number] MARIA DEL ROSARIOMEGHANA Birch Self - patient is the insured MEDICAL (GENERAL) HISTORY Medical History History ICD Code Parkinson's disease Hypertension Hyperlipidemia Macular degeneration Nonischemic cardiomyopathy, EF 50 - 55% Bipolar disorder Hypothyroidism Colon cancer Spinal stenosis Left bundle-branch block Surgical History Surgery Date(Month/Year) Right ileocolectomy 2001 Knee replacements, bilateral Back surgery
--- OUTSIDE RECORDS SUMMARY | 2024-10-03 13:39 | XMS_ITS | Encounter Summary ---
Author Organization [facility] Address [address] [place] [phone] Care Team Providers Care Mother Tester Name Role Phone Oliver Keita MD Primary Care Provider [phone] Reason for Visit * Reason Onset Date Comments Procedure 09/17/2024 Cardiac clearanc e for upper endoscopy Encounter Details Date Type Department Care Team (Late st Contact Info) Description 09/17/2024 Telephone [facility] - [address] [place] [address] Edward Sexton MD [address] [place] [address],[address] [address] Procedure (Cardiac clearance for upper endoscopy ) Social History Tobacco Use Types Packs/Day Years Used Date Smoking Tobacco: Former Smokeless Tobacco: Never Alcohol Use Standard Drinks/Week Comments Not Currently 0 (1 standard drink = 0.6 oz pur e alcohol) Sex and Gender Information Value Date Recorded Sex Assigned at Not on file Gender Identity Not on file Sexual Orientation Not on file documented as of this encounter Progress Notes * Irene Henao MA - 09/18/2024 8:05 AM EST Faxed letter & last office visit to Tim ASHTON [phone]. Confirmation Received. * Loki Kasper NP - 09/17/2024 4:49 PM EST Completed. * Irene Henao MA - 09/17/2024 1:40 PM EST Called [facility], they are looking for a letter stating it's ok to proceed with an upper endoscopyfrom a cardiac standpoint. Last office visit 11/17/2023. Last office visit placed on [facility]'s desk. * Zoey Salazar MA - 09/17/2024 11:29 AM EST Lolis from Dr Garcia's office at [facility] called. They saw the patient today and scheduled herfor an upper endoscopy on October 03. They are looking for cardiac clearance for the patient. Please advise documented in this encounter Plan of Treatment Not on file documented as of this encounter Visit Diagnoses Not on filedocumented in this encounter Care Teams Mother Tester Relationship Specialty Start Date End Date Oliver Keita MD PCP - General Oncology 07/05/17 documented as of this encounter
--- OUTSIDE RECORDS SUMMARY | 2024-10-03 13:39 | XMS_ITS ---
Author Organization [facility] Address [address] [place] [address] Care Team Providers Care Radio Electronics Officer Name Role Phone Oliver Keita MD Primary Care Provider Unavailab thalia Garcia Jr, Papito Richmond REASON FOR VISIT please lock 09-17-24 office note Encounters Encounter Location Date Provider Diagnosis [facility] [address] [place] [address] 10/01/2024 Papito Garcia Jr PLAN OF TREATMENT No Information
--- OUTSIDE RECORDS SUMMARY | 2024-10-03 13:39 | XMS_ITS ---
Author Organization [facility] Address Unknown Allergies, Adverse Reactions, Alerts Substance Reaction Status Noted Date Resolved Date Morphine and Related active 05/19/2015 Encounters Encounter Performer Performer Role Encounter Diagnoses Location Date Discharge - Discharged / Transferred to home under care of organized home health service organization - Home - Private home/apt. with home health services [facility] 05/19/2015 02:30 pm EDT - 06/06/2015 11:25 am EDT Immunizations Vaccine Date Influenza 06/28/2014 12:00 am EDT Pneumovax Dose 1 06/28/2014 12:00 am EDT Social History
--- OUTSIDE RECORDS SUMMARY | 2024-10-03 13:39 | XMS_ITS | Clinical Summary ---
Author Organization [facility] Address [address] [place] [phone] Care Team Providers Care Printer Assistant Name Role Phone Oliver Keita MD Primary Care Provider [phone] Encounters Date Type Department Care Team Description 09/17/2024 Telephone [facility] - [address] [place] [address] Edward Sexton MD Procedure (Cardiac clearance for upper endoscopy ) from Last 3 Months Social History Tobacco Use Types Packs/Day Years Used Date Smoking Tobacco: Former Smokeless Tobacco: Never Alcohol Use Standard Drinks/Week Comments Not Currently 0 (1 standard drink = 0.6 oz pur e alcohol) Sex and Gender Information Value Date Recorded Sex Assigned at Not on file Gender Identity Not on file Sexual Orientation Not on file Obstetrics History Last Filed Vital Signs Vital Sign Reading Time Taken Comments Blood Pressure 132/70 11/17/2023 10:20 AM EST Sitting R Arm Pulse 74 11/17/2023 10:20 AM EST Temperature - - Respiratory Rate - - Oxygen Saturation - - Inhaled Oxygen Concentration - - Weight 59.6 kg (131 lb 6.4 oz) 11/17/2023 10:20 AM EST Height 152.4 cm (5') 11/17/2023 10:20 AM EST Body Mass Index 25.66 11/17/2023 10:20 AM EST Plan of Treatment Health Maintenance Due Date Last Done Comments DTaP,Tdap,and Td Vaccines (1 - Tdap) 1962 Zoster Vaccines (1 of 2) 1993 Pneumococcal Vaccine: 65+ Years (1 of 1 - PCV) 2008 RSV Immunization Patients 60 + Years Old (1 - 1-dose 75+ series) 2018 Cholesterol Screening (Lipid Panel) 08/15/2022 Depression Screening 08/15/2022 Falls Risk Assessment 08/15/2022 Osteoporosis Screening (Bone Density Screening) 08/15/2022 Social Influencers of Health Screening 08/15/2022 Hypertension/CHF/CAD Annual BMP Blood Test 08/22/2022 COVID-19 Vaccine (1 - 2023-2 5 season) 2024 Influenza Vaccine (#1) 2024 3, 06/16/2022, 06/18/2021 HIB Vaccines Aged Out No longer eligi ble based on patient's age to complete this topic HPV Vaccines Aged Out No longer eligi ble based on patient's age to complete this topic Hepatitis A Vaccines Aged Out No long er eligible based on patient's age to complete this topic Hepatitis B Vaccines Aged Out No long er eligible based on patient's age to complete this topic IPV Vaccines Aged Out No longer eligi ble based on patient's age to complete this topic MMR Vaccines Aged Out No longer eligi ble based on patient's age to complete this topic Meningococcal ACWY Vaccine Aged Out N o longer eligible based on patient's age to complete this topic RSV Immunization Patients Under 20 months Aged Out No longer eligible b ased on patient's age to complete this topic Varicella Vaccines Aged Out No longer eligible based on patient's age to complete this topic Advance Directives Documents on File Type Date Recorded Patient [place] Expl anation Health Care Decision (hx) 05/19/2015 AD SANTOS DIRECTIVE Health Care Decision (hx) 05/19/2015 AD SANTOS DIRECTIVE Health Care Decision (hx) 05/19/2015 AD SANTOS DIRECTIVE Health Care Decision (hx) 05/19/2015 AD SANTOS DIRECTIVE Health Care Decision (hx) 05/19/2015 AD SANTOS DIRECTIVE Health Care Decision (hx) 05/19/2015 AD SANTOS DIRECTIVE Care Teams Printer Assistant Relationship Specialty Start Date End Date Oliver Keita MD PCP - General Oncology 07/05/17
--- OUTSIDE RECORDS SUMMARY | 2024-10-03 13:39 | XMS_ITS ---
Author Organization [facility] Address [address] [place] [address] Care Team Providers Care Butcher Meat Name Role Phone Oliver Keita MD Primary Care Provider Papito Ruiz Jr Unavailable [phone] ALLERGIES Allergen (clinical drug ingredient) Drug/Non Drug Allergy documented on EMR Reaction Allergy Type Onset Date Status morphine Morphine Unknown Drug Allergy Active REASON FOR VISIT Patient presents today for esophageal motility issues MEDICATIONS Medication SIG (Take, Route, Frequency, Duration) Notes Start Date End Date Status [place] Carbonate ER 300 MG Oral for 84 Active Olmesartan Medoxomil 20 MG TAKE 1/2 TABL ET BY MOUTH DAILY Oral for 90 Active Atorvastatin Calcium 20 MG Oral for 90 Active Escitalopram Oxalate 10 MG Oral for 90 Active buPROPion HCl ER (XL) 300 MG Oral for 90 Active Neupro 1 MG/24HR Transdermal for 30 Active [facility] Stool Softener 100 MG TAKE 1 CAPSULE BY MOUTH 2 TIMES A DAY X 90 DAYS, TAKE WITH PLENTY OF WATER Oral for 90 Active ARIPiprazole 2 MG Oral for 90 Active Carvedilol 6.25 MG Oral for 90 Active Carbidopa-Levodopa ER 25-100 MG TAKE 1 TABLET BY MOUTH 3 TIMES A DAY BEFORE MEALS Oral for 90 Active Docusate Sodium 100 [...] NEEDED FOR ANXIETY Oral for 90 Active Aspirin 81 81 MG 1 tablet Orally Once a day for 30 day(s) Active SOCIAL HISTORY Tobacco Use: Social History [...] Problem Abnormal UGI series (R93.3) Active confirmed 630860874 Problem Long-term use of aspirin therapy (Z79.82) Active confirmed 657898023 VITAL SIGNS BMI 26.17 kg/m2 09/17/2024 Blood pressure systolic 000 mm Hg 09/17/19 25 Blood pressure diastolic 00 mm Hg 025 Height 5 ft 0 in in 09/17/2024 Temperature 97.1 degrees Fahrenheit 09/17/19 25 Weight 134 lbs 09/17/2024 Encounters Encounter Location Date Provider Diagnosis [facility] [address] [place] [address] 09/17/2024 Papito Garcia Jr Abnormal UGI series R93.3 and Long-term use of aspirin therapy Z79.82 ASSESSMENTS Encounter Date Diagnosis Assessment Notes Treatment Notes Treatment Clinical Notes 09/17/2024 Abnormal UGI series (ICD-10 - R93.3) Digestive diseases material was printed 09/17/2024 Long-term use of aspirin therapy (ICD-10 - Z79.82) PLAN OF TREATMENT Treatment Notes Assessment Notes Abnormal UGI series Digestive diseases m aterial was printed Future Test Test Name Order Date UPPER GI ENDOSCOPY 09/17/2024 Next Appt Details Follow Up: 1 Year, Reason: Progress Notes * Examination Category Sub-Category Detail Notes General Examination GENERAL APPEARANCE: in no ac moraima distress HEAD: normocephalic EYES: sclera non-icteric NECK/THYROID: no lymphadenopathy HEART: S1, S2 normal, no mu rmurs CHEST: normal shape and exp ansion LUNGS: clear to auscultatio n bilaterally ABDOMEN: soft, nontender, non distended, bowel sounds present, no organomegaly SKIN: anicteric EXTREMITIES: no clubbing, cyanosi s, or edema PSYCH: cognitive function i ntact ORAL CAVITY: mucosa moist
--- OUTSIDE RECORDS SUMMARY | 2024-10-03 13:40 | XMS_ITS ---
Author Organization Oliver Keita III, MD Address [address] [facility] [address] 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 She is short of breath only with sustained exertion. 08/27/2024 Athscl heart disease of [place] coronary artery w/o ang pctrs (ICD-10 - [...] blood work and X-ray Provider Name:Oliver Keita, 11/14/2024 10:30:00 AM, [address] [place] [address] [address], [place], [address], Provider Name:Oliver Keita, 12/17/2024 10:00:00 AM, [address] [place] [address] [address], [place], [phone], Progress Notes * Abraham BURGOS:[birth year] (79 yo F)Acc No.[id number]:08/27/2024 Progress Notes Patient:?Julienne BURGOS Provider:?Oliver Keita MD :1945???Age:79 Y???Sex:Female D ate:08/27/2024 Address:[address], [facility] Subjective: * Chief Complaints: * ???Dysphagia for [...] is not working. She was born in [facility] [place]. 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 She is short of breath only with sustained exertion.???10.?Athscl heart disease of [place] coronary artery w/o ang pctrs - I25.10???Notes [...] Keita MD Date:?08/12 Generated for Printi ng/Cecilia/eTransmitting on:?10/03/2024 01:40 PM EST History and Physical Notes * [...]
--- OUTSIDE RECORDS SUMMARY | 2024-10-03 13:40 | XMS_ITS ---
Author Organization Oliver Keita III, MD Address [address] [place] [address] Care Team Providers Care Property Management Specialist Name Role Phone Oliver Keita Primary Care Provider REASON FOR VISIT Wheelchair Social History Sex Assigned At : Social History Observation Description Sex Assigned At Female Encounters Encounter Location Date Provider Diagnosis Oliver Keita III, MD [address] [place] [address] [place] [address] 09/28/2024 Oliver Keita Plan Of Treatment Next Appt Details Provider Name:Oliver Keita, 11/14/2024 10:30:00 AM, [address] [facility] [place], [address], Provider Name:Oliver Keita, 12/17/2024 10:00:00 AM, [address] [facility] [address], [place], [address], Progress Notes * Julienne BURGOSDOB:[birth year] (79 yo F)Acc No.[id number]:09/28/2024 Patient:?Julienne BURGOS :1945???Age:79 Y???Sex:Female Address:[facility] [address], [place] [address] * * Date:?
--- OUTSIDE RECORDS SUMMARY | 2024-10-03 13:40 | XMS_ITS ---
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 Name Role Phone Oliver Keita Primary Care Provider Allergies Allergen (clinical drug ingredient) Drug/Non Drug Allergy documented on EMR Reaction Allergy Type Onset Date Status morphine Morphine Sulfate Unknown Drug Allergy Active REASON FOR VISIT One episode of hematemesis, Parkinson's disease, History of colon cancer, Bipolar, Lumbar spinal stenosis, Cardio myopathy, Osteoporosis, Hyperlipidemia, Hypothyroid Medications Medication SIG (Take, Route, Frequency, Duration) Notes Start Date End Date Status Olmesartan Medoxomil 5 MG 1 tablet Orally Once a day Active Docusate Sodium 100 MG 1 capsule as need ed Orally Once a day prn constipation 10/07/2017 Active PreserVision AREDS - Orally Active Carvedilol 6.25 MG 1 tablet with food O rally Twice a day Active Aspirin Adult Low Strength 81 MG 1 tablet Orally Once a day A ctive Atorvastatin Calcium 20 MG TAKE 1 TABLET BY MOUTH EVERY DAY Active Carbidopa-Levodopa 10-100 MG 1 tablet Orally Three times a day Active Minoxidil for Women 2 % 1 mL Externally Twice a day 10/17/2023 Active buPROPion HCl ER (XL) 300 MG 1 tablet in the morning Orally Once a day Active Vitamin C Active ARIPiprazole 2 MG 1 tablet Orally Once a day Active Social History Tobacco Use: Social History [...] Non-User Ex-cigaret te smoker Vital Signs Temperature 97.2 degrees Fahrenheit 09/19/19 25 Blood pressure systolic 117 mm Hg 09/19/19 25 Blood pressure diastolic 57 mm Hg 025 Heart Rate 89 /min 09/19/2024 Height 64 in 09/19/2024 Weight 139 lbs 09/19/2024 BMI 23.86 kg/m2 09/19/2024 Encounters Encounter Location Date Provider Diagnosis Oliver Keita III, MD [address] [place] [address] [place] [address] 09/19/2024 Oliver Keita Malignant neoplasm o f sigmoid colon C18.7 ; Parkinsons disease G20 ; Bipolar 1 disorder with moderate milady F31.12 ; Left bundle branch block I44.7 ; Cardiomyopathy I42.9 ; Spinal stenosis of lumbar region without neurogenic claudication M48.06 ; Osteoarthritis M19.90 ; Former smoker Z87.891 ; Other fracture of T11-T12 vertebra, initial encounter for closed fracture S22.088A ; Hyperlipidemia, unspecified hyperlipidemia type E78.5 and Essential hypertension I10 Assessments Encounter Date Diagnosis (ICD Code) Assessment Notes Treat ment Notes Treatment Clinical Notes 09/19/2024 Malignant neoplasm of sigmoid colon (ICD-10 - C18.7) There is no sign of recurrent colon cancer at this time. Surveillance will continue with periodic colonoscopy. 09/19/2024 Parkinsons disease (ICD-10 - G20) Her main complaint about her health these days is the Parkinson's disease and a gait apraxia is in difficulty with the activities of daily life. She feels diffusely weak. She is compliant with her medication. She will follow-up with me on the neurologist regularly.She is becoming increasingly weaker. He is having more difficulty walking. We are prescribing a wheelchair and physical therapy. 09/19/2024 Bipolar 1 disorder with moderate milady (ICD-10 - F31.12) She remains under the care of her mental health provider. No change in her medications was made. 09/19/2024 Left bundle branch block (ICD-10 - I44.7) She has no cardiovascular symptoms at this time. 09/19/2024 Cardiomyopathy (ICD-10 - I42.9) Her caddie has made no change in her regimen. She is short of breath only with sustained exertion. 09/19/2024 Spinal stenosis of lumbar region without neurogenic claudication (ICD-10 - M48.06) Her back pain is stable. No change in her regimen as needed. Her pain was improved with the injection yesterday 09/19/2024 Osteoarthritis (ICD-10 - M19.90) She has mild arthritis in the knees, shoulders and hands. No change in her regimen as needed today. She is able to conduct all of the activities of daily living without impairment. 09/19/2024 Former smoker (ICD-10 - Z87.891) She is highly motivated not to smoke and has a plan for maintenance of abstinence. 09/19/2024 Other fracture of T11-T12 vertebra, initial encounter for closed fracture (ICD-10 - S22.088A) Her pain is much improved she is ambulatory without difficulty and feels well. Current pain is in the hip where she had the injection, which is now improving. 09/19/2024 Hyperlipidemia, unspecified hyperlipidemia type (ICD-10 - E78.5) Her lipids are currently stable. Comprehensive blood work Is available..Her total cholesterol is 132 and triglycerides 119. No change in her regimen as necessary. 09/19/2024 Essential hypertension (ICD-10 - I10) Her blood pressure has been controlled at 117/57. I have recommended aggressive weight loss and sodium restriction. Plan Of Treatment Medication Medication Name Sig Start Date Stop Date Notes Olmesartan Medoxomil 5 MG 1 tablet Orally Once a day Docusate Sodium 100 MG 1 capsule as need ed Orally Once a day prn constipation 10/07/2017 PreserVision AREDS - Orally Carvedilol 6.25 MG 1 tablet with food O rally Twice a day Aspirin Adult Low Strength 8 1 MG 1 tablet Orally Once a day Atorvastatin Calcium 20 MG TAKE 1 TABLET BY MOUTH EVERY DAY Carbidopa-Levodopa 10-100 MG 1 tablet Or ally Three times a day Minoxidil for Women 2 % 1 mL Externally Twice a day 2023 buPROPion HCl ER (XL) 300 MG 1 tablet in the morning Orally Once a day Vitamin C ARIPiprazole 2 MG 1 tablet Orally Once a day Next Appt Details Follow Up: 2 Months, Six wee ks from now, Reason: OV, Follow-up on the patient's condition Provider Name:Oliver Keita, 11/14/2024 10:30:00 AM, [address] [place] [address] [address], [place], [id number], Provider Name:Oliver Keita, 12/17/2024 10:00:00 AM, [address] [place] [address] [address], [place], [id number], Progress Notes * Julienne BURGOSDOB:[birth year] (79 yo F)Acc No.[id number]:09/19/2024 Progress Notes Patient:?Julienne BURGOS Provider:?Oliver Keita MD :1945???Age:79 Y???Sex:Female D ate:09/19/2024 Address:[facility] [place] [id number] Subjective: * Chief Complaints: * ???One episode of hematemesi sParkinson's diseaseHistory of colon cancerBipolarLumbar spinal stenosisCardio myopathyOsteoporosisHyperlipidemiaHypothyroid * HPI: ???COVID-19 Screening:?Questions?Have you had any new onset fever, chills, cough, congestion, sore throat, shortness of breath, muscle aches??No ???:?The patient, an 79-year-old female, has been suffering from chronic constipation for a long time. The severity of the condition has increased over the past week, with the patient experiencing difficulty in passing stool. The patient has been taking a stool softener, docusate, for at least a month, but it has not been effective. The patient also reported an episode of vomiting with blood after consuming coffee, sugar cookies, and pineapple. The patient has Parkinson's disease, which has been causing her difficulty in walking and maintaining balance. She uses a wheeled walker for support but has been finding it increasingly difficult to walk. Her weight loss has resolved. * ROS:?General/Constitutional:?pain?only normal aches and pains.?Chills?denies.?Fatigue?admits.?Fever?denies.?ENT:?Decreased hearing?in both ears.?Respiratory:?Cough?denies.?Cardiovascular:?Chest pain with exertion?denies.?Dyspnea on exertion?denies.?Shortness of breath?with exertion.?Gastrointestinal:?Constipation?occasional.?Decreased appetite?denies.?Diarrhea?denies.?Heartburn?denies.?Nausea?denies.?Rectal bleeding?denies.?Vomiting?denies.?Hematology:?bruising?denies.?petechiae?denies.?Swollen glands?none have been noted.?Genitourinary:?Frequent urination?a small amount.?Musculoskeletal:?Muscle aches?denies.?Painful joints?denies.?Sciatica?denies.?Weakness?that is moderate.?Skin:?Itching?denies.?Rash?denies.?Skin lesion(s)?denies.?Neurologic:?Difficulty speaking?denies.?Dizziness?denies.?Headache?denies.?Low back pain?that is chronic.?Psychiatric:?Depressed mood?which is moderate.? * Medical History:? * Surgical History:?right ilie ocolectomy 2002colonoscopy 12/2010colonoscopy 11/2008right knee replacement cardiac catheterization, normal 06/2014lumbar decompression 2015left knee replacement Back surgery No history * Hospitalization/Major Diagno stic Procedure:?[facility] 07/2022No history * Family History:?Father: dece ased 76 yrs, [...] is not working. She was born in [facility], [place]. * Medications:?TakingAtorvasta tin Calcium 20 MG Tablet TAKE 1 TABLET BY MOUTH EVERY DAY Minoxidil for Women 2 % Solution 1 [...] 1 tablet Orally Three times a day Medication List reviewed and reconciled with the patientTaking Atorvastatin Calcium 20 MG Tablet TAKE 1 TABLET BY MOUTH EVERY DAY Taking Minoxidil for Women 2 % Solution 1 [...] 1 tablet Orally Once a day Taking Carbidopa-Levodopa 10-100 MG Tablet 1 tablet Orally Three times a day Medication List reviewed and reconciled with the patient * Allergies:?Morphine Sulfaten o[Allergies Verified] Objective: * Vitals:?Ht: 64, Wt:139, BMI: 23.86, BP:117/57, HR:89, Temp:97.2, Wt-k.05. * ???Past Orders: ???Lab:Complete Blood Count Auto Diff (Order Date - 08/28/2024) (Collection Date & Time - 08/28/2024 10:56 AM) ? Value Reference Range ?White Blood Count 11.0 H 4. 8-10.8 - X10*3/uL ?Red Blood Count 3.52 L 4.20 -5.50 - X10*6/uL ?Hemoglobin 10.4 L 12.0-16.0 - g/dl ?Hematocrit 32.5 L 37.0-47.0 - % ?Mean Corpuscular Volume 92.3 80.0-98.0 - fL ?Mean Corpuscular Hemoglobin 29.5 27.0-33.0 - pg ?Mean Corpuscular HGB Conc 32.0 31.0-35.0 - g/dl ?Red Cell Distribution Width 12.8 11.0-16.0 - % ?Platelet Count 244 160-4 00 - X10*3/uL ?Mean Platelet Volume 9.6 9.4-12.3 - fL ?Neutrophils Percent Auto 73.9 H 45-73 - % ?Imm Gran Pct Auto 0.3 0. 0-0.4 - % ?Lymphocytes Percent Auto 16.1 L 20-40 - % ?Monocytes Percent Auto 6.4 2-11 - % ?Eosinophils Percent Auto 2.5 0-4 - % ?Basophils Percent Auto 0.8 0-2 - % ?NRBC Pct Auto 0.0 0.0-0. 2 - /100WBC ?Neutrophils Absolute Auto 8.1 2.0-8.3 - x10*3/uL ?Imm Gran Abs Auto 0.03 0. 00-0.03 - X10*3/uL ?Lymphocytes Absolute Auto 1.8 1.2-4.9 - X10*3/uL ?Monocytes Absolute Auto 0.7 0.1-1.2 - X10*3/uL ?Eosinophils Absolute Auto 0.3 0.0-0.4 - X10*3/uL ?Basophils Absolute Auto 0.1 0.0-0.2 - X10*3/uL ?NRBC Abs Auto 0.000 0.0-0. 012 - X10*3/uL ???Lab:Comprehensive Chappell. P vlad Fast (Order Date - 08/28/2024) (Collection Date & Time - 08/28/2024 10:56 AM) ? Value Reference Range ?Sodium 137 135-145 - mmo l/L ?Bilirubin Total 0.3 0.0- 1.0 - mg/dL ?Aspartate Amino Transferase 21 5-31 - U/L ?Alanine Aminotransferase 6 0-31 - U/L ?Total Protein 6.6 6.5-8. 0 - g/dL ?Albumin Level 3.9 3.5-5. 0 - g/dL ?Alkaline Phosphatase 78 39-117 - U/L ?Potassium 5.0 3.3-5.1 - mmol/L ?Chloride 106 96-108 - mm ol/L ?Carbon Dioxide 24 22-29 - mmol/L ?Anion Gap 12 12-20 - ?Blood Urea Nitrogen 27 H 9-16 - mg/dL ?Creatinine 0.99 0.5-1.4 - mg/dL ?Estimated Glomerular Filt Rate 54 - ?Glucose Fasting 97 60-9 9 - mg/dL ?Calcium 8.7 8.4-10.2 - m g/dL ???Lab:Lipid Panel (Order Da te - 08/28/2024) (Collection Date & Time - 08/28/2024 10:56 AM) ? Value Reference Range ?Triglycerides 119 <150 - mg/dL ?Cholesterol 132 <200 - m g/dL ?LDL Cholesterol Calculated 66 <100 - mg/dL ?HDL Cholesterol 43 >40 - mg/dL ???Lab:Free T4 (Free Thyroxi ne) (Order Date - 08/28/2024) (Collection Date & Time - 08/28/2024 10:56 AM) ? Value Reference Range ?Free T4 (Free Thyroxine) 1.12 0.71-1.85 - ng/dL ???Lab:Thyroid Stimulating H mikijacob (Order Date - 08/28/2024) (Collection Date & Time - 08/28/2024 10:56 AM) ? Value Reference Range ?Thyroid Stimulating Hormone 2.78 0.32-4.0 - uIU/mL ???Imaging:FL upper GI w air (Order Date - 08/28/2024) (Performed Date - 08/28/2024) * Examination: ???General Examination: ?GENERAL APPEARANCE:?pleasant, well nourished, well developed, in no acute distress, calm and relaxed, elderly woman.?HEAD:?atraumatic, normocephalic.?EYES:?eomi, perrla, anicteric, conjugate.?EARS:?normal.?NOSE:?septum intact.?ORAL CAVITY:?normal, unremarkable.?NECK/THYROID:?no jugular venous distention, no carotid bruit, thyroid normal.?LYMPH NODES:?no enlarged lymph nodes,spleen normal.?SKIN:?no suspicious lesions, anicteric.?HEART:?no clicks, gallops, murmurs, or rubs, regular rhythm, S1, S2 normal, no s3, or vascular bruits.?LUNGS:?clear to auscultation .?BREASTS:?,Not examined.?ABDOMEN:?bowel sounds normal, no ascites, no organomegaly, no mass.?RECTAL EXAM:?not examined.?MUSCULOSKELETAL:?extremities unremarkable, no clubbing, cyanosis or edema, Generalized muscle weakness lower extremities.?PERIPHERAL PULSES:?normal.?NEUROLOGIC:?alert and oriented, cranial nerves 2-12 grossly intact, deep tendon reflexes 2+ symmetrical, motor strength normal upper and lower extremities, sensory exam intact, Uses walker, gait slow and unsteady, Parkinson's apraxia of gait, bilateral upper extremity tremor, Increasing lower extremity weakness.?PSYCH:?alert, oriented, anxious appearing, mood depressed.? Assessment: * Assessment: 1.?Parkinsons disease - G20 (Primary)???Notes :Her main complaint about her health these days is the Parkinson's disease and a gait apraxia is in difficulty with the activities of daily life. She feels diffusely weak. She is compliant with her medication. She will follow-up with me on the neurologist regularly.She is becoming increasingly weaker.? He is having more difficulty walking.? We are prescribing a wheelchair and physical therapy.???2.?Malignant neoplasm of sigmoid colon - C18.7???Notes :There is no sign of recurrent colon cancer at this time. Surveillance will continue with periodic colonoscopy.???3.?Bipolar 1 disorder with moderate milady - F31.12???Notes :She remains under the care of her mental health provider. No change in her medications was made.???4.?Left bundle branch block - I44.7???Notes :She has no cardiovascular symptoms at this time.???5.?Cardiomyopathy - I42.9???Notes :Her caddie has made no change in her regimen. She is short of breath only with sustained exertion.???6.?Spinal stenosis of lumbar region without neurogenic claudication - M48.06???Notes :Her back pain is stable. No change in her regimen as needed. Her pain was improved with the injection yesterday???7.?Osteoarthritis - M19.90???Notes :She has mild arthritis in the knees, shoulders and hands. No change in her regimen as needed today. She is able to conduct all of the activities of daily living without impairment.???8.?Former smoker - Z87.891???Notes :She is highly motivated not to smoke and has a plan for maintenance of abstinence.???9.?Other fracture of T11-T12 vertebra, initial encounter for closed fracture - S22.088A???Notes :Her pain is much improved she is ambulatory without difficulty and feels well. Current pain is in the hip where she had the injection, which is now improving.???10.?Hyperlipidemia, unspecified hyperlipidemia type - E78.5???Notes :Her lipids are currently stable. Comprehensive blood work Is available..Her total cholesterol is 132 and triglycerides 119. No change in her regimen as necessary.???11.?Essential hypertension - I10???Notes :Her blood pressure has been controlled at 117/57. I have recommended aggressive weight loss and sodium restriction.??? Plan: * Treatment: * Procedure Codes:? * Preventive Medicine:? ??Counseling:?Care goal follow-up plan:?Counseling for abnormal BMI given?Yes ?Above Normal BMI Follow-up?Dietary management education, guidance, and counseling ?Smoking/Tobacco Use?Patient counseled on the dangers of tobacco use and urged to quit.?09/19/2024 * Follow Up:?2 Months, Six wee ks from now (Reason: OV, Follow-up on the patient's condition) * Images: * Sign off status: Completed true * Provider:?Oliver Keita MD Date:?04/2025 Generated for Kerri pena/Cecilia/eTransmitting on:?10/03/2024 01:40 PM EST History and Physical Notes * HPI (History of Present Illness) Category Sub-Category Detail Notes COVID-19 Screening Questions Have you had any new onset fever, chills, cough, congestion, sore throat, shortness of breath, muscle aches?: No Examination Category Sub-Category Detail Notes General Examination GENERAL APPEARANCE: pleasant , well nourished, well developed, in no acute distress, calm and relaxed, elderly woman HEAD: atraumatic, normocep halic EYES: eomi, perrla, [...] normal upper and lower extremities, sensory exam intact, Uses walker, gait slow and unsteady, Parkinson's apraxia of gait, bilateral upper extremity tremor, Increasing lower extremity weakness SKIN: no suspicious lesion s, anicteric PERIPHERAL PULSES: normal BREASTS: , Not examined MUSCULOSKELETAL: extremities unremark able, no clubbing, cyanosis or edema, Generalized muscle weakness lower extremities LYMPH NODES: no enlarged lymph no yunior,spleen normal RECTAL EXAM: not examined PSYCH: alert, oriented, anx ious appearing, mood depressed ORAL CAVITY: normal, unremarkable
[2024-10-03 14:08] VITALS: BP 107/46; PULSE 77; RESP 18; TEMP 36.8; O2SAT 96
[2024-10-03 14:23] VITALS: BP 99/63; PULSE 74; RESP 18; TEMP 36.8; O2SAT 96
--- NOTE | 2024-10-03 14:46 | OP_ITS ---
DATE OF SERVICE: 10/03/2024 SURGEON: Papito Garcia MD INDICATIONS: Dysphagia and abnormal upper GI series. PREOPERATIVE DIAGNOSIS: POSTOPERATIVE DIAGNOSIS: PROCEDURE PERFORMED: Upper endoscopy with biopsy. ESTIMATED BLOOD LOSS: COMPLICATIONS: ANESTHESIA: ASSISTANTS: SPECIMENS: MEDICATIONS: Monitored anesthesia care. DESCRIPTION OF PROCEDURE: A history and physical was performed. The risks and benefits of the procedure were explained to the patient. Informed consent obtained. The patient was placed in the left lateral decubitus position. The Olympus video gastroscope was introduced into the esophagus, stomach, and duodenum. Examination was performed. The scope was removed. She tolerated the procedure well and was returned to the recovery area in stable condition. 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 This began at approximately 33 cm to 34 cm and extended to the EG junction and approximately 2 cm into the stomach to about 40 cm. The mass caused luminal narrowing. The scope was able to be advanced through the mass, which was quite friable. 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 There were several small pieces of food around the area of the mass, they were pushed gently through into the stomach. Multiple biopsies were obtained from the esophageal mass. Stomach: The stomach was otherwise normal. Duodenum: The bulb and 2nd portion were normal. IMPRESSION: Esophageal mass. RECOMMENDATION: 1. Follow up the biopsy results. 2. Soft diet only. MD LIAM Martinez/MARY / [id number]
== END 2024-10-03 15:30 | disposition home or self-care (01) ==
PROVIDERS: Pathology Anatomic Pathology & Clinical Pathology; PCP Internal Medicine Medical Oncology; Visit Provider Internal Medicine Gastroenterology
PROC: 0DJ08ZZ Inspection of Upper Intestinal Tract, Via Natural or Artificial Opening Endoscopic (ICD-10-PCS; CPT 43235; principal; 2024-10-03 14:00)
DX: C15.9 Malignant neoplasm of esophagus, unspecified (principal); R13.10 Dysphagia, unspecified; Z85.038 Personal history of other malignant neoplasm of large intestine; R07.9 Chest pain, unspecified; R11.2 Nausea with vomiting, unspecified; I10 Essential (primary) hypertension; I42.8 Other cardiomyopathies; E78.5 Hyperlipidemia, unspecified; G20.A1 Parkinson's disease without dyskinesia, without mention of fluctuations; Z79.82 Long term (current) use of aspirin; Z79.899 Other long term (current) drug therapy; Z88.5 Allergy status to narcotic agent; Z90.49 Acquired absence of other specified parts of digestive tract; Z98.890 Other specified postprocedural states
CPT/HCPCS: 43239; 36415; 88305; 88341; 88342; 88360; 88374; J2003; J2704; J3010